=== PATIENT | female | born 1965 | race Caucasian/White ===

== ENCOUNTER 2017-02-02 09:36 | Emergency (ER) | payer OTHER ==
[2017-02-02 11:48] VITALS: BP 147/83
--- NOTE | 2017-02-02 12:02 | UC ---
Respiratory Complaint HPI - HPI Summary HPI Summary: Patient arrives to with 4 day history of cough, congestion, post nasal drip, SOB, SALGADO, body aches, diaphoresis and chills. Symptoms are becoming worse. Cough is bothering her the most. She notes to SOB, but more so when she coughs. Denies chest pain, but endorses pressure. She denies getting the flu vaccine this year, stating she does not believe in it. She also has never had the flu. Denies sore throat, sick contacts or travel. Patient is an ex-smoker and quit 3 months ago. She has high BP and takes medications. NKA. Denies fever. - History of Current Complaint Chief Complaint: UCRespiratory Stated Complaint: URI Time Seen by Provider: 02/02/17 10:57 Hx Obtained From: Patient ?: No Onset/Duration: Sudden Onset Timing: Constant Severity Initially: Moderate Severity Currently: Moderate Pain Intensity: 3 Pain Scale Used: 0-10 Numeric Character: Cough: Productive Aggravating Factors: Deep Breaths, Recumbent Position Alleviating Factors: Upright Position Associated Signs And Symptoms: Positive: Dyspnea, Pleuritic Chest Pain, URI, Nasal Congestion, Sinus Discomfort - Risk Factors Pulmonary Embolism Risk Factors: Smoking Cardiac Risk Factors: Hypertension, Smoking Pseudomonas Risk Factors: Negative Tuberculosis Risk Factors: Negative - Allergies/Home Medications Allergies/Adverse Reactions: Allergies Allergy/AdvReac Type Severity Reaction Status Date / Time No Known Allergies Allergy Verified 02/02/17 10:36 PMH/Surg Hx/FS Hx/Imm Hx Previously Healthy: Yes Endocrine History Of: Denies: Diabetes, Thyroid Disease Cardiovascular History Of: Reports: Hypertension Denies: Cardiac Disorders Respiratory History Of: Reports: Asthma Denies: COPD GI/ History Of: Reports: Kidney Stones Denies: Ulcer - Surgical History Surgical History: Yes Surgery Procedure, Year, and Place: csection, - Family History Known Family History: Positive: Unknown - adopted. unknown FHx. - Social History Occupation: Employed Full-time Alcohol Use: None Alcohol Amount: 5-6 drinks twice a week Substance Use Type: None Smoking Status (MU): Former Smoker Type: Cigarettes Amount Used/How Often: 1/2 pack a day Length of Time of Smoking/Using Tobacco: 30+ yrs Have You Smoked in the Last Year: Yes Household Exposure Type: Cigarettes - Immunization History Most Recent Influenza Vaccination: never Most Recent Tetanus Shot: unk Most Recent Pneumonia Vaccination: never Review of Systems Constitutional: Fatigue Skin: Negative ENT: Nasal Discharge Respiratory: Shortness Of Breath, Cough Neurovascular: Negative Musculoskeletal: Myalgia Neurological: Headache, Weakness Psychological: Negative All Other Systems Reviewed And Are Negative: Yes Physical Exam Triage Information Reviewed: Yes Appearance: Well-Nourished, Ill-Appearing, Obese Vital Signs: Initial Vital Signs Temp 98.0 F 02/02/17 10:30 Pulse 89 02/02/17 10:30 Resp 20 02/02/17 10:30 BP 168/73 02/02/17 10:30 Pulse Ox 96 02/02/17 10:30 Vital Signs Reviewed: Yes Eye Exam: Normal Eyes: Positive: Conjunctiva Clear ENT: Positive: Nasal congestion Dental Exam: Normal Neck: Positive: Supple, No Lymphadenopathy Respiratory Exam: Normal Respiratory: Positive: Chest non-tender, Lungs clear Cardiovascular Exam: Normal Cardiovascular: Positive: RRR Musculoskeletal Exam: Normal Musculoskeletal: Positive: Strength Intact Neurological Exam: Normal Neurological: Positive: Alert Psychological: Positive: Normal Response To Family Skin Exam: Normal UC Diagnostic Evaluation - Laboratory O2 Sat by Pulse Oximetry: 96 Respiratory Course/Dx - Course Course Of Treatment: Patient sent to xray. Xray shows PNA. Patient recently quit smoking and will prescribe Levaquin d/t given for foul smelling mucous and smoking history to cover H. influenza and strep pneumo. Patient has multiple risk factors. Given tylenol with codeine for cough, encouraged continuation of mucinex. Note given for work. - Differential Dx/Diagnosis Differential Diagnosis/HQI/PQRI: Bronchitis, Exacerbation Of COPD, Sinusitis, Other - PNA Provider Diagnoses: bacterial pneumonia Discharge - Discharge Plan Condition: Stable Disposition: HOME Prescriptions: Acetaminophen W/ Codeine [Acetaminophen/Codeine Rafaela] 1 tab PO Q6H PRN #20 tab MDD 4 PRN Reason: Cough Levofloxacin TAB* [Levaquin TAB*] 750 mg PO DAILY #5 tab Patient Education Materials: Bacterial Pneumonia (ED) Forms: *Work Release Referrals: Edy Calvin MD [Primary Care Provider] - Additional Instructions: Continue with guaifenesin up to 3 times daily - follow instructions on packaging at home. Tylenol with codeine may be taken up to 4 times daily, but do not drive with this medication. Levaquin has been prescribed to you. Take this once per day for 5 days. Do not extra Tylenol while you are taking the cough medication. If you develop a fever, you may take Ibuprofen 600mg up to three times daily. Rest Drink plenty of fluids Humidifier in the home will help with symptoms.
--- NOTE | 2017-02-02 12:33 | RAD ---
INDICATION: Wheezing, rhonchi and cough. COMPARISON: There are no prior studies available for comparison. TECHNIQUE: Dual-energy PA and lateral views of the chest were obtained. FINDINGS: The heart is within normal limits in size. Mediastinal and hilar contours appear within normal limits. There is a faint peripheral infiltrate present in the right mid and lower lung field only seen on the subtraction images. The lungs are otherwise clear. No pleural effusion is seen. IMPRESSION: RIGHT-SIDED INFILTRATE SUSPICIOUS FOR PNEUMONIA.
== END 2017-02-02 13:15 | disposition home or self-care (01) ==
LOC: UCEAST 09:36
DX: J18.9 Pneumonia, unspecified organism (principal); I10 Essential (primary) hypertension; Z87.891 Personal history of nicotine dependence; E66.9 Obesity, unspecified
CPT/HCPCS: 71020; 99212; G0463

== ENCOUNTER 2017-02-26 16:22 | Observation (INO) | payer OTHER ==
[2017-02-26] MEDS ORDERED: Ondansetron INJ* 2 MG/ML VIAL IV ONE (17:26)
[2017-02-26] MEDS: NS 0.9% 1000 ML* 2,000 ML IV ONE ×2 (18:07→18:15)
--- NOTE | 2017-02-26 18:08 | RAD ---
INDICATION: Shortness of breath, recent pneumonia. Diarrhea. COMPARISON: February 08, 2017 TECHNIQUE: Dual energy PA and routine lateral views of the chest were obtained. REPORT: Large body habitus results in superimposed opacity at the lower lung zones. No pulmonary infiltrate, focal pulmonary lesion, pleural effusion, pneumothorax. The heart, pulmonary vasculature, and mediastinal contours are unremarkable. IMPRESSION: No evidence for acute intrathoracic disease.
[2017-02-26 18:26] LABS: Hematocrit 40 % (35-47); Hemoglobin 12.8 g/dl (12.0-16.0); Mean Corpuscular HGB Conc 32 g/dl (31-36); Mean Corpuscular Hemoglobin 29 pg (27-31); Mean Corpuscular Volume 91 fL (80-97); Mean Platelet Volume 9 um3 (7.4-10.4); Red Cell Distribution Width 15 % (10.5-15); White Blood Count 13.2 10^3/ul (3.5-10.8)
[2017-02-26 18:40] LABS: Albumin 4.4 g/dL (3.2-5.2); BUN/Creatinine Ratio 17.3 (8-20); C Reactive Protein 28.92 mg/L (< 5.00); Calcium 10.1 mg/dL (8.6-10.3); EGFR African American 22.5 (>60); EGFR Non-African American 17.5 (>60); Potassium 4.2 mmol/L (3.5-5.0); Total Bilirubin 0.3 mg/dL (0.2-1.0); Total Protein 7.4 g/dL (6.4-8.9)
[2017-02-26 20:38] LABS: Urine Bilirubin Negative (Negative); Urine Glucose Negative (Negative); Urine Nitrite Negative (Negative)
[2017-02-26] MEDS ORDERED: NS 0.9% 1000 ML* 1,000 ML IV ONE (21:13)
--- NOTE | 2017-02-26 23:13 | ED ---
Rafa Fam Erika, scribed for Nirav Chase MD on 02/26/17 at 1741 . GI/ HPI - HPI Summary HPI Summary: Patient is a 51-year-old female presenting to the ED with a CC of diarrhea. Patient reports that 3 days ago, she developed nausea, decreased appetite, and diarrhea. Diarrhea is watery with no blood. She denies vomiting. 2 days ago, patient developed generalized arthralgias. Patient also reports bilateral lower back pain and diffuse abdominal pain rated a 4/10. Patient reports she drank pedialyte today, but did not urinate since this morning which is unusual for her. Patient now also notes new abdominal bloating. She admits to mild burning with urination and states a Hx kidney stones. Patient states that she was diagnosed with pneumonia, and finished her second round of Abx 2 weeks ago. She was first on levaquin, and then on bactrim and azithromycin. Symptoms have improved, but she still notes SOB and a productive cough with dark yellow phlegm. - History of Current Complaint Chief Complaint: EDGeneral Time Seen by Provider: 02/26/17 17:12 Hx Obtained From: Patient Onset/Duration: Started Days Ago, Atraumatic, Still Present Timing: Constant Severity: Moderate Pain Intensity: 6 Location of Pain: Diffuse Associated Signs and Symptoms: Positive: Back Pain, Nausea, Dysuria, Change in Appetite. Negative: Vomiting Aggravating Factor(s): Nothing Alleviating Factor(s): Nothing - Allergy/Home Medications Allergies/Adverse Reactions: Allergies Allergy/AdvReac Type Severity Reaction Status Date / Time No Known Allergies Allergy Verified 02/02/17 10:36 PMH/Surg Hx/FS Hx/Imm Hx Endocrine/Hematology History: Denies: Hx Diabetes, Hx Thyroid Disease Cardiovascular History: Reports: Hx Hypertension Respiratory History: Reports: Hx Asthma Denies: Hx Chronic Obstructive Pulmonary Disease (COPD) GI History: Denies: Hx Ulcer History: Reports: Hx Kidney Stones - Cancer History Hx Chemotherapy: No Hx Radiation Therapy: No - Surgical History Surgery Procedure, Year, and Place: csection, Infectious Disease History: Denies: Hx Hepatitis, Hx Human Immunodeficiency Virus (HIV), Hx of Known/ Suspected MRSA, Hx Shingles, Hx Tuberculosis, History Other Infectious Disease, Traveled Outside the [place] in Last 30 Days - Family History Known Family History: Positive: Unknown - adopted - Social History Occupation: Employed Full-time Hx Substance Use: No Substance Use Type: Reports: None Hx Tobacco Use: Yes Smoking Status (MU): Former Smoker Type: Cigarettes Amount Used/How Often: 1/2 pack a day Length of Time of Smoking/Using Tobacco: 30+ yrs Have You Smoked in the Last Year: Yes Review of Systems Positive: Shortness Of Breath, Cough - productive Positive: Abdominal Pain - with bloating, Diarrhea, Nausea. Negative: Vomiting Positive: burning - mild, frequency - decreased Positive: Arthralgia, Myalgia - lower back pain All Other Systems Reviewed And Are Negative: Yes Physical Exam Triage Information Reviewed: Yes Vital Signs On Initial Exam: Initial Vitals Temp Pulse Resp BP Pulse Ox 97.1 F 108 20 112/63 99 02/26/17 16:31 02/26/17 16:31 02/26/17 16:31 02/26/17 16:31 02/26/17 16:31 Vital Signs Reviewed: Yes Appearance: Positive: No Pain Distress, Ill-Appearing - Mildly Skin: Positive: Warm, Skin Color Reflects Adequate Perfusion, Dry Head/Face: Positive: Normal Head/Face Inspection Eyes: Positive: EOMI, PARVEEN ENT: Positive: Normal ENT inspection Neck: Positive: Supple, Nontender Respiratory/Lung Sounds: Positive: Clear to Auscultation, Breath Sounds Present Cardiovascular: Positive: Tachycardia - at 108 bpm on triage Abdomen Description: Positive: Nontender, Soft Bowel Sounds: Positive: Present Musculoskeletal: Positive: Normal, Strength/ROM Intact Neurological: Positive: Normal, Sensory/Motor Intact, Alert, Oriented to Person Place, Time Psychiatric: Positive: Affect/Mood Appropriate Diagnostics - Vital Signs Vital Signs Temp Pulse Resp BP Pulse Ox 02/26/17 16:31 97.1 F 108 20 112/63 99 - Laboratory Lab Results: Lab Results 02/26/17 02/26/17 02/26/17 Range/Units 18:05 18:05 18:05 WBC 13.2 H (3.5-10.8) 10^3/ul RBC 4.40 (4.0-5.4) 10^6/ul Hgb 12.8 (12.0-16.0) g/dl Hct 40 (35-47) % MCV 91 (80-97) fL MCH 29 (27-31) pg MCHC 32 (31-36) g/dl RDW 15 (10.5-15) % Plt Count 280 (150-450) 10^3/ul MPV 9 (7.4-10.4) um3 Neut % (Auto) 65.5 (38-83) % Lymph % (Auto) 26.4 (25-47) % Louisa % (Auto) 6.7 (1-9) % Eos % (Auto) 0.8 (0-6) % Baso % (Auto) 0.6 (0-2) % Absolute Neuts (auto) 8.7 H (1.5-7.7) 10^3/ul Absolute Lymphs (auto) 3.5 (1.0-4.8) 10^3/ul Absolute Monos (auto) 0.9 H (0-0.8) 10^3/ul Absolute Eos (auto) 0.1 (0-0.6) 10^3/ul Absolute Basos (auto) 0.1 (0-0.2) 10^3/ul Absolute Nucleated RBC 0 10^3/ul Nucleated RBC % 0 Sodium 135 (133-145) mmol/L Potassium 4.2 (3.5-5.0) mmol/L Chloride 103 (101-111) mmol/L Carbon Dioxide 20 L (22-32) mmol/L Anion Gap 12 H (2-11) mmol/L BUN 49 H (6-24) mg/dL Creatinine 2.83 H (0.51-0.95) mg/dL Est GFR ( Amer) 22.5 (>60) Est GFR (Non-Af Amer) 17.5 (>60) BUN/Creatinine Ratio 17.3 (8-20) Glucose 108 H (70-100) mg/dL Lactic Acid 1.2 (0.5-2.0) mmol/L Calcium 10.1 (8.6-10.3) mg/dL Total Bilirubin 0.30 (0.2-1.0) mg/dL AST 24 (13-39) U/L ALT 30 (7-52) U/L Alkaline Phosphatase 66 (34-104) U/L C-Reactive Protein 28.92 H (< 5.00) mg/L Total Protein 7.4 (6.4-8.9) g/dL Albumin 4.4 (3.2-5.2) g/dL Globulin 3.0 (2-4) g/dL Albumin/Globulin Ratio 1.5 (1-3) Lipase 22 (11.0-82.0) U/L Urine Color Urine Appearance Urine pH (5-9) Ur Specific [place] (1.010-1.030) Urine Protein (Negative) Urine Ketones (Negative) Urine Blood (Negative) Urine Nitrate (Negative) Urine Bilirubin (Negative) Urine Urobilinogen (Negative) Ur Leukocyte Esterase (Negative) Urine Glucose (Negative) 02/26/17 Range/Units 18:25 WBC (3.5-10.8) 10^3/ul RBC (4.0-5.4) 10^6/ul Hgb (12.0-16.0) g/dl Hct (35-47) % MCV (80-97) fL MCH (27-31) pg MCHC (31-36) g/dl RDW (10.5-15) % Plt Count (150-450) 10^3/ul MPV (7.4-10.4) um3 Neut % (Auto) (38-83) % Lymph % (Auto) (25-47) % Louis[place] % (Auto) (1-9) % Eos % (Auto) (0-6) % Baso % (Auto) (0-2) % Absolute Neuts (auto) (1.5-7.7) 10^3/ul Absolute Lymphs (auto) (1.0-4.8) 10^3/ul Absolute Monos (auto) (0-0.8) 10^3/ul Absolute Eos (auto) (0-0.6) 10^3/ul Absolute Basos (auto) (0-0.2) 10^3/ul Absolute Nucleated RBC 10^3/ul Nucleated RBC % Sodium (133-145) mmol/L Potassium (3.5-5.0) mmol/L Chloride (101-111) mmol/L Carbon Dioxide (22-32) mmol/L Anion Gap (2-11) mmol/L BUN (6-24) mg/dL Creatinine (0.51-0.95) mg/dL Est GFR ( Amer) (>60) Est GFR (Non-Af Amer) (>60) BUN/Creatinine Ratio (8-20) Glucose (70-100) mg/dL Lactic Acid (0.5-2.0) mmol/L Calcium (8.6-10.3) mg/dL Total Bilirubin (0.2-1.0) mg/dL AST (13-39) U/L ALT (7-52) U/L Alkaline Phosphatase (34-104) U/L C-Reactive Protein (< 5.00) mg/L Total Protein (6.4-8.9) g/dL Albumin (3.2-5.2) g/dL Globulin (2-4) g/dL Albumin/Globulin Ratio (1-3) Lipase (11.0-82.0) U/L Urine Color Yellow Urine Appearance Clear Urine pH 5.0 (5-9) Ur Specific [place] 1.016 (1.010-1.030) Urine Protein Negative (Negative) Urine Ketones Negative (Negative) Urine Blood Negative (Negative) Urine Nitrate Negative (Negative) Urine Bilirubin Negative (Negative) Urine Urobilinogen Negative (Negative) Ur Leukocyte Esterase Negative (Negative) Urine Glucose Negative (Negative) Result Diagrams: 02/26/17 18:05 02/26/17 18:05 Lab Statement: Any lab studies that have been ordered have been reviewed, and results considered in the medical decision making process. - Radiology CXR Radiology Interpretation Completed By: Radiologist - IMPRESSION: No evidence for acute intrathoracic disease. Re-Evaluation - Re-Evaluation First Eval Re-Evaluation Time: 20:45 Change: Improved Comment: Discussed results with patient. Was able to eat - will see if she can tolerate the PO Second Eval Re-Evaluation Time: 21:16 Comment: Discussed plan for possible admission vs. discharge - pt would prefer discharge, so IV fluids and PO test started. Will recheck creatinine. Fourth Eval Re-Evaluation Time: 23:01 Comment: Patient was able to tolerate PO intake and is still feeling better. Creatinine re-draw pending GIGU Course/Dx - Course Course Of Treatment: NO CRITICAL CARE TIME Assessment/Plan: DISCUSSED ADMISSION VERSES DISCHARGE TO HOME. PATIENT WAS GIVEN 3 LITERS OF NS IN ED. TOLERATING PO. IF CREATINE DROPS SUFFICIENTLY AND PATIENT IS TOLERATING PO, SHE WILL F/U WITH HER PMD. STABLE IN ED. OTHERWISE, SHE WILL BE ADMITTED. - Diagnoses Provider Diagnoses: Dehydration, Vomiting and diarrhea, Acute renal insufficiency - Physician Notifications Discussed Care Of Patient With: Dr. Evangelista (hospitalist) at 21:12 - discussed patient's creatinine and possible admission. If patient is concerned, Dr. Evangelista will admit. If pt prefers to go home, patient will be given fluids, creatinine will be rechecked, and pt will be PO tested, and then disposition will be made. Discharge - Discharge Plan Condition: Stable Disposition: HOME Prescriptions: Ondansetron ODT TAB* [Zofran 4 MG Odt TAB*] 4 mg PO Q6H PRN #10 tab.odt PRN Reason: Nausea Patient Education Materials: Dehydration (ED), Acute Nausea and Vomiting (ED), Acute Diarrhea (ED), Impaired Kidney Function (ED) Forms: *Work Release Referrals: Edy Calvin MD [Primary Care Provider] - Additional Instructions: FOLLOW UP WITH YOUR DOCTOR. CALL 02/28/17 TO HAVE A RECHECK OF YOUR KIDNEY FUNCTION (CREATININE) WITH YOUR DOCTOR ON 02/28/17 OR 03/01/17. RETURN TO THE EMERGENCY DEPARTMENT FOR ANY WORSENING OF YOUR CONDITION; VOMITING , FEVER, YOU FEEL ILL, PAIN OR QUESTIONS OR CONCERNS. The documentation as recorded by the Rafa victor Erika accurately reflects the service I personally performed and the decisions made by me, Nirav Chase MD.
[2017-02-26 23:27] LABS: BUN/Creatinine Ratio 19.8 (8-20); Calcium 8.6 mg/dL (8.6-10.3); EGFR African American 29.7 (>60); EGFR Non-African American 23.1 (>60); Potassium 3.9 mmol/L (3.5-5.0)
[2017-02-26] MEDS ORDERED: NS 0.9% 1000 ML* 1,000 ML IV SCH (23:45)
--- NOTE | 2017-02-26 23:50 | ED ---
Progress - Progress Note Progress Note: pt signed out to me by Dr. Mancilla collateral specialist after hydration is 2.22, call to Tonja who will admit her. Pt admitted with dehydration in stable condition Re-Evaluation - Re-Evaluation First Eval Re-Evaluation Time: 20:45 Change: Improved Comment: Discussed results with patient. Was able to eat - will see if she can tolerate the PO Second Eval Re-Evaluation Time: 21:16 Comment: Discussed plan for possible admission vs. discharge - pt would prefer discharge, so IV fluids and PO test started. Will recheck creatinine. Fourth Eval Re-Evaluation Time: 23:01 Comment: Patient was able to tolerate PO intake and is still feeling better. Creatinine re-draw pending Course/Dx - Course Course Of Treatment: NO CRITICAL CARE TIME - Diagnoses Provider Diagnoses: Dehydration, Vomiting and diarrhea, Acute renal insufficiency - Provider Notifications Discussed Care Of Patient With: Dr. Evangelista (hospitalist) at 21:12 - discussed patient's creatinine and possible admission. If patient is concerned, Dr. Evangelista will admit. If pt prefers to go home, patient will be given fluids, creatinine will be rechecked, and pt will be PO tested, and then disposition will be made.
[2017-02-26] MEDS ORDERED: Ondansetron INJ* 2 MG/ML VIAL IV PRN (23:57)
[2017-02-26] MEDS ORDERED: Acetaminophen TAB* 325 MG PO PRN (23:57)
[2017-02-26] MEDS ORDERED: Albuterol 2.5 MG/3 ML NEB.SOL* (0.083%) INH PRN (23:57)
[2017-02-26] MEDS ORDERED: CMCS: Melatonin (NF) 3 MG TAB PO PRN (23:57)
--- NOTE | 2017-02-27 00:10 | HP ---
H&P (Free Text) History and Physical: PCP: ALEJANDRO Calvin MD Date/Time of Evaluation: 02/26/2017 2355 CC: abdominal pain, diarrhea HPI: Mrs Hernández is a 51YO morbidly obese female HX HTN & asthma who reports onset of diffuse abdominal cramping, watery brown diarrhea, & nausea without emesis starting 2 days ago and progressing to include fatigue and generalized malaise for which she presents. She denies F/C and sweats beyond her baseline menopausal symptoms. She denies black or bloody aspect to the diarrhea. She reports about 6 stools yesterday and 3 today. She has had poor PO intake due to the nausea which is made worse by eating/drinking. She had a similar experience in 05/2016 requiring observation for IVFs. Vitals are stable. Labs show a significant PEDRO with creatinine 2.8 (baseline <1) . She received 3L IVFs in ED and recheck creatinine was improved, but only to 2.2. As such, it is most prudent to observe for further IVFs and trend her renal function. PMedHx HTN asthma morbid obesity Ambulatory Orders Aspirin 325 mg PO DAILY 06/12/16 Enalapril TAB* [Vasotec TAB*] 5 mg PO BID 06/12/16 Glucosamine Hydrochloride [Glucosamine] 500 mg PO DAILY 06/12/16 Multiple Vitamins W/ Minerals [Hair Skin and Nails Formu] 1 tab PO DAILY WITH MEAL 06/12/16 Acetaminophen W/ Codeine [Acetaminophen/Codeine Rafaela 300-30 mg] 1 tab PO Q4H PRN #24 tab MDD 6 02/02/17 Levofloxacin TAB* [Levaquin TAB*] 750 mg PO DAILY #5 tab 02/02/17 Ondansetron ODT TAB* [Zofran 4 MG Odt TAB*] 4 mg PO Q6H PRN #10 tab.odt Allergies No Known Allergies Allergy (Verified 02/02/17 10:36) PSurgHx x2 SocHx: former smoker w/ ~20PYHX, social alcohol, no recreational drugs; lives alone, from her , 2 adult children neither local; full code status FamHx: adopted & unknown ROS: as above, otherwise reviewed and all were negative Constitutional: NAD, normally developed, morbidly obese white female vitals: Vital Signs Temp 36.2 C 02/26/17 18:09 Pulse 100 02/26/17 18:30 Resp 18 02/26/17 18:30 BP 126/74 02/26/17 18:30 Pulse Ox 99 02/26/17 18:30 Intake & Output 02/26/17 02/26/17 02/27/17 11:59 23:59 11:59 Intake Total 3000 Balance 3000 Weight 108.862 kg Intake: IV Fluids 3000 Other: Date of Last Bowel 02/26/17 Movement HEENM: atraumatic; sclera/conjunctiva: non-icteric/clear; hearing: clinically intact; oropharynx: clear, mucosa moist Neck: soft tissue: non-tender; thyroid: normal Pulmonary: clear to auscultation bilaterally, good aeration, no accessory muscle use CV: RR/RR, normal S1S2, no carotid bruit, no jugular venous distention, 2+ B DP/ PT, no edema Abdominal: soft, non-distended, minimally tender R lateral area, no rebound/ guarding/rigidity, normoactive bowel sounds, no hepatosplenomegaly or masses, no costovertebral angle tenderness Musculoskeletal: general: grossly intact; gait: stable Integumental: normal appearance and texture Psychiatric orientation: AA&O to PPS affect: calm mood: cooperative eye contact: good content: reliable responses: timely insight: good Testing: Lab Results 02/26/17 02/26/17 02/26/17 Range/Units 18:05 18:05 18:05 WBC 13.2 H (3.5-10.8) 10^3/ul RBC 4.40 (4.0-5.4) 10^6/ul Hgb 12.8 (12.0-16.0) g/dl Hct 40 (35-47) % MCV 91 (80-97) fL MCH 29 (27-31) pg MCHC 32 (31-36) g/dl RDW 15 (10.5-15) % Plt Count 280 (150-450) 10^3/ul MPV 9 (7.4-10.4) um3 Neut % (Auto) 65.5 (38-83) % Lymph % (Auto) 26.4 (25-47) % [place] % (Auto) 6.7 (1-9) % Eos % (Auto) 0.8 (0-6) % Baso % (Auto) 0.6 (0-2) % Absolute Neuts (auto) 8.7 H (1.5-7.7) 10^3/ul Absolute Lymphs (auto) 3.5 (1.0-4.8) 10^3/ul Absolute Monos (auto) 0.9 H (0-0.8) 10^3/ul Absolute Eos (auto) 0.1 (0-0.6) 10^3/ul Absolute Basos (auto) 0.1 (0-0.2) 10^3/ul Absolute Nucleated RBC 0 10^3/ul Nucleated RBC % 0 Sodium 135 (133-145) mmol/L Potassium 4.2 (3.5-5.0) mmol/L Chloride 103 (101-111) mmol/L Carbon Dioxide 20 L (22-32) mmol/L Anion Gap 12 H (2-11) mmol/L BUN 49 H (6-24) mg/dL Creatinine 2.83 H (0.51-0.95) mg/dL Est GFR ( Amer) 22.5 (>60) Est GFR (Non-Af Amer) 17.5 (>60) BUN/Creatinine Ratio 17.3 (8-20) Glucose 108 H (70-100) mg/dL Lactic Acid 1.2 (0.5-2.0) mmol/L Calcium 10.1 (8.6-10.3) mg/dL Total Bilirubin 0.30 (0.2-1.0) mg/dL AST 24 (13-39) U/L ALT 30 (7-52) U/L Alkaline Phosphatase 66 (34-104) U/L C-Reactive Protein 28.92 H (< 5.00) mg/L Total Protein 7.4 (6.4-8.9) g/dL Albumin 4.4 (3.2-5.2) g/dL Globulin 3.0 (2-4) g/dL Albumin/Globulin Ratio 1.5 (1-3) Lipase 22 (11.0-82.0) U/L Urine Color Urine Appearance Urine pH (5-9) Ur Specific [place] (1.010-1.030) Urine Protein (Negative) Urine Ketones (Negative) Urine Blood (Negative) Urine Nitrate (Negative) Urine Bilirubin (Negative) Urine Urobilinogen (Negative) Ur Leukocyte Esterase (Negative) Urine Glucose (Negative) 02/26/17 02/26/17 Range/Units 18:25 22:55 WBC (3.5-10.8) 10^3/ul RBC (4.0-5.4) 10^6/ul Hgb (12.0-16.0) g/dl Hct (35-47) % MCV (80-97) fL MCH (27-31) pg MCHC (31-36) g/dl RDW (10.5-15) % Plt Count (150-450) 10^3/ul MPV (7.4-10.4) um3 Neut % (Auto) (38-83) % Lymph % (Auto) (25-47) % [place] % (Auto) (1-9) % Eos % (Auto) (0-6) % Baso % (Auto) (0-2) % Absolute Neuts (auto) (1.5-7.7) 10^3/ul Absolute Lymphs (auto) (1.0-4.8) 10^3/ul Absolute Monos (auto) (0-0.8) 10^3/ul Absolute Eos (auto) (0-0.6) 10^3/ul Absolute Basos (auto) (0-0.2) 10^3/ul Absolute Nucleated RBC 10^3/ul Nucleated RBC % Sodium 136 (133-145) mmol/L Potassium 3.9 (3.5-5.0) mmol/L Chloride 108 (101-111) mmol/L Carbon Dioxide 22 (22-32) mmol/L Anion Gap 6 (2-11) mmol/L BUN 44 H (6-24) mg/dL Creatinine 2.22 H (0.51-0.95) mg/dL Est GFR ( Amer) 29.7 (>60) Est GFR (Non-Af Amer) 23.1 (>60) BUN/Creatinine Ratio 19.8 (8-20) Glucose 131 H (70-100) mg/dL Lactic Acid (0.5-2.0) mmol/L Calcium 8.6 (8.6-10.3) mg/dL Total Bilirubin (0.2-1.0) mg/dL AST (13-39) U/L ALT (7-52) U/L Alkaline Phosphatase (34-104) U/L C-Reactive Protein (< 5.00) mg/L Total Protein (6.4-8.9) g/dL Albumin (3.2-5.2) g/dL Globulin (2-4) g/dL Albumin/Globulin Ratio (1-3) Lipase (11.0-82.0) U/L Urine Color Yellow Urine Appearance Clear Urine pH 5.0 (5-9) Ur Specific [place] 1.016 (1.010-1.030) Urine Protein Negative (Negative) Urine Ketones Negative (Negative) Urine Blood Negative (Negative) Urine Nitrate Negative (Negative) Urine Bilirubin Negative (Negative) Urine Urobilinogen Negative (Negative) Ur Leukocyte Esterase Negative (Negative) Urine Glucose Negative (Negative) CXR, personally reviewed: IMPRESSION: No evidence for acute intrathoracic disease. Impression: 51F presenting with gastroenteritis w/ 2nd dehydration & PEDRO DIAGNOSIS & PLAN Primary gastroenteritis w/ dehydration : IVFs : anti-emetics : no other specific treatment PEDRO : IVFs, trend renal function Secondary HTN : hold anti-hypertensives for now asthma : PRN albuterol nebs OA : pain control Admission Rational: observation for PEDRO DVTp: SCDs Code Status: full
[2017-02-27] MEDS: NS 0.9% 1000 ML* 1,000 ML IV SCH ×2 (01:00→05:51)
[2017-02-27] MEDS: oxyCODONE TAB* 5 MG TAB PO PRN ×2 (01:19→05:49)
[2017-02-27] MEDS ORDERED: Omeprazole CAP* 20 MG PO SCH (06:00)
[2017-02-27 08:44] LABS: Hematocrit 33 % (35-47); Hemoglobin 10.6 g/dl (12.0-16.0); Mean Corpuscular HGB Conc 32 g/dl (31-36); Mean Corpuscular Hemoglobin 29 pg (27-31); Mean Corpuscular Volume 91 fL (80-97); Mean Platelet Volume 9 um3 (7.4-10.4); Red Blood Count 3.63 10^6/ul (4.0-5.4); Red Cell Distribution Width 15 % (10.5-15)
[2017-02-27 08:55] LABS: BUN/Creatinine Ratio 26.2 (8-20); Calcium 7.9 mg/dL (8.6-10.3); EGFR African American 57.1 (>60); EGFR Non-African American 44.4 (>60); Potassium 4.8 mmol/L (3.5-5.0)
--- NOTE | 2017-02-27 10:20 | RAD ---
Indication: Acute renal insufficiency. Comparison: June 12, 2016 CT. Technique: Renal ultrasound. Report: 11.8 x 5.5 x 5.5 cm RIGHT kidney. 11.0 x 5.2 x 6.1 cm LEFT kidney. Normal bilateral renal cortical echogenicity. Punctate echogenic foci at both kidneys with equivocal shadowing suspicious for small stones. No suspicious focal renal lesions or hydronephrosis. IMPRESSION: Normal size kidneys with normal cortical echogenicity. Probable small nonobstructing bilateral renal stones. Negative for hydronephrosis. June 12, 2016 CT demonstrated a few punctate RIGHT renal stones.
[2017-02-27 12:03] VITALS: BP 125/50
--- NOTE | 2017-02-27 19:25 | DS ---
DISCHARGE SUMMARY: DATE OF ADMISSION: 02/26/17 DATE OF DISCHARGE: 02/27/17 PRIMARY CARE PROVIDER: Dr. Calvin. DISCHARGE DIAGNOSES: 1. Abdominal pain and diarrhea, most likely due to costochondritis. 2. Acute renal failure due to dehydration secondary to above. SECONDARY DIAGNOSES: 1. History of hypertension. 2. History of asthma. 3. Obesity. MEDICATIONS AT DISCHARGE: Include: 1. Aspirin 325 mg daily. 2. Glucosamine with chondroitin 500 mg daily. 3. Multivitamin 1 tablet daily. LABORATORY DATA AND STUDIES PERFORMED DURING THE HOSPITAL STAY: Included: On 02/27/17, white blood cell count of 7.0, hemoglobin of 10.6, hematocrit of 33, and platelets of 187. Sodium 138, potassium 4.8, chloride 111, carbon dioxide 22, BUN 33, creatinine 1.26. Creatinine at admission was 2.8. Urinalysis was grossly unremarkable at admission. Renal ultrasound obtained on 02/27/17, impression: "Normal size kidneys with normal cortical echogenicity. Probable small, non-obstructive bilateral renal stones. Negative hydronephrosis." HOSPITALIZATION COURSE: Taina Hernández is 51-year-old female, who presented to the hospital on 02/26/17 with complaints of abdominal pain and diarrhea. The patient stated that she had abdominal pain/cramping and diarrhea for 3 days. She was noted to have acute renal failure with creatinine of 2.8, a baseline creatinine of 0.8. The patient appeared dehydrated. She was placed on overnight observation with intravenous fluids and hydration. In the morning of 02/27/17, the patient was evaluated. She still continued to have diarrhea, but abdominal cramping resolved. She was able to tolerate bland diet. Her leukocytosis resolved spontaneously. At this point, her stool cultures are still pending. Her renal failure is markedly improved. The patient requested to be discharged home. 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 She stated that she feels much better. She was advised to stay due to continuation of diarrhea , but she refused. She was educated that if her diarrhea continues to persists , she needs to be reevaluated in the emergency room for more intravenous hydration. The patient also was encouraged to seek medical attention for a followup within the next 2 to 4 days with her primary care provider. She was recommended to continue to drink plenty of fluids and be on bland diet for the next several days. PHYSICAL EXAMINATION AT THE TIME OF DISCHARGE: Vital Signs: Blood pressure of 125/50, heart rate of 93 and regular, respiratory rate 16, oxygen saturation 98 % on room air, temperature 98.5. General: The patient is a very pleasant 51- year-old female, who is in no acute distress, alert, awake, and oriented x3. HEENT: Head atraumatic, normocephalic. Eyes: Pupils equal and reactive to light and accommodation. Oropharynx clear. Mucosa moist. Neck: Supple. No JVD. No bruit bilaterally. Cardiovascular: Regular rate and rhythm. No murmur. Respiratory: Clear to auscultation bilaterally. Abdomen: Soft and nontender. Bowel sounds present in all 4 quadrants. Extremities: There is no edema. Pulses are +2 bilaterally. There is no clubbing or cyanosis. Please note this is a short summary of the patient's hospital stay. Please refer to further medical records for details. TIME SPENT: Approximately 40 minutes was spent on the patient's discharge. CC: Dr. Calvin* [id number]/[facility] #: [id number] MALAIKA
== END 2017-02-27 13:35 | disposition home or self-care (01) ==
LOC: ED 16:22 → MED 23:56
PROVIDERS: ADMIT Hospitalist; ATTEND Internal Medicine
DX: K52.9 Noninfective gastroenteritis and colitis, unspecified (principal); E86.0 Dehydration; N17.9 Acute kidney failure, unspecified; I10 Essential (primary) hypertension; E66.01 Morbid (severe) obesity due to excess calories; J45.909 Unspecified asthma, uncomplicated; Z79.899 Other long term (current) drug therapy; Z87.891 Personal history of nicotine dependence
CPT/HCPCS: 36415; 71020; 76775; 80048; 80053; 81003; 82270; 83605; 83630; 83690; 85025; 86140; 87045; 87046; 87328; 87329; 87899; 96361; 96374; 99283; A9270-GY; J2405

== ENCOUNTER 2017-07-16 12:52 | Emergency (ER) | payer OTHER ==
--- NOTE | 2017-07-16 14:06 | UC ---
Respiratory Complaint HPI - History of Current Complaint Chief Complaint: UCAsthma Stated Complaint: ASTHMA Time Seen by Provider: 07/16/17 13:59 Hx Obtained From: Patient ?: No Onset/Duration: Gradual Onset - has been sick with URI over past week, was rx;d prednisone and z-ezekiel by PCP, pt feels no better. states at times she coughs so hard she sees blood tinged sputum last used albuterol inhaler 3 days ago Severity Currently: Moderate Character: Cough: Productive Aggravating Factors: Exertion, Deep Breaths Alleviating Factors: Nothing Associated Signs And Symptoms: Positive: URI - Risk Factors Pulmonary Embolism Risk Factors: Negative Cardiac Risk Factors: Hypertension - Allergies/Home Medications Allergies/Adverse Reactions: Allergies Allergy/AdvReac Type Severity Reaction Status Date / Time No Known Allergies Allergy Verified 07/16/17 13:03 Home Medications: Home Medications Albuterol HFA INHALER* [Ventolin HFA Inhaler*] 1 puff PO Q4H PRN 07/16/17 [ History Confirmed 07/16/17] Amlodipine Besylate [Norvasc 2.5 mg tab] 2.5 mg PO DAILY 07/16/17 [History Confirmed 07/16/17] Enalapril TAB* [Vasotec TAB*] 5 mg PO DAILY 07/16/17 [History Confirmed 07/16/17 ] Fluticasone Furoate-Vilanterol [Breo Ellipta 200-25 Mcg/INH] 1 inh PO DAILY [History Confirmed 07/16/17] PMH/Surg Hx/FS Hx/Imm Hx Previously Healthy: Yes Cardiovascular History: Hypertension Respiratory History: Asthma - Surgical History Surgical History: Yes Surgery Procedure, Year, and Place: csection, - Family History Known Family History: Positive: Unknown - adopted - Social History Occupation: Employed Full-time - [employer] Lives: With Family Alcohol Use: Occasionally Alcohol Amount: 5-6 drinks twice a week Substance Use Type: None Smoking Status (MU): Former Smoker Type: Cigarettes Amount Used/How Often: 1/2 pack a day Length of Time of Smoking/Using Tobacco: 30+ yrs Have You Smoked in the Last Year: Yes Household Exposure Type: Cigarettes - Immunization History Most Recent Influenza Vaccination: never Most Recent Tetanus Shot: unk Most Recent Pneumonia Vaccination: never Review of Systems Constitutional: Fatigue Skin: Negative Respiratory: Cough Cardiovascular: Negative Gastrointestinal: Diarrhea - had diarrhea for 2-3 days early in week Musculoskeletal: Negative Neurological: Negative Psychological: Negative All Other Systems Reviewed And Are Negative: Yes Physical Exam Triage Information Reviewed: Yes Appearance: Well-Appearing, No Pain Distress, Obese Vital Signs: Initial Vital Signs Temp 98.5 F 07/16/17 12:56 Pulse 103 07/16/17 12:56 Resp 20 07/16/17 12:56 BP 156/72 07/16/17 12:56 Pulse Ox 98 07/16/17 12:56 Vital Signs Reviewed: Yes Eyes: Positive: Conjunctiva Clear ENT Exam: Normal Respiratory: Positive: Wheezing - mild insp. no evidence SOB, no cough on exam Cardiovascular Exam: Normal Cardiovascular: Positive: RRR Abdomen Description: Positive: Nontender, No Organomegaly, Soft Neurological Exam: Normal Neurological: Positive: Alert Psychological Exam: Normal Skin Exam: Normal Skin: Negative: rashes UC Diagnostic Evaluation - Laboratory O2 Sat by Pulse Oximetry: 98 Respiratory Course/Dx - Differential Dx/Diagnosis Differential Diagnosis/HQI/PQRI: Asthma, CHF, Lower Resp Infection Provider Diagnoses: Bronchitis Discharge - Discharge Plan Condition: Stable Disposition: HOME Patient Education Materials: Acute Bronchitis (ED) Referrals: Edy Calvin MD [Primary Care Provider] - 2 Days Additional Instructions: drink plenty of fluids finish your prednisone as prescribed by Dr. Calvin Report to ER if your symptoms worsen
--- NOTE | 2017-07-16 14:35 | RAD ---
Indication: Cough. 2 views of the chest including dual energy PA views demonstrates no mediastinal shift. Heart is of normal size and configuration. Lungs are clear. Compared to previous exam of February 26, 2017 no significant change is noted. IMPRESSION: No active cardiopulmonary disease is noted.
[2017-07-16 15:25] VITALS: BP 150/70
== END 2017-07-16 15:25 | disposition home or self-care (01) ==
LOC: UCEAST 12:52
DX: J40 Bronchitis, not specified as acute or chronic (principal); I10 Essential (primary) hypertension; E66.9 Obesity, unspecified; Z87.891 Personal history of nicotine dependence
CPT/HCPCS: 71020; 99212; G0463

== ENCOUNTER → 2017-07-29 13:53 | Emergency (ER) | payer OTHER ==
[~2017-07-29 13:53] MED LIST: NS 0.9% 1000 ML* 1,000 ML IV ONE; Tetan/Diph/Pertus SYR(Tdap)* 0.5 ML SYR(BOOSTRIX) use SYR IM ONE; cefTRIAXone(*) 1 GM in NS 0.9% 50 ML* 50 ML IVPB ONE
[2017-07-29 13:58] VITALS: BP 164/75
[2017-07-29 15:20] LABS: Hemoglobin 12.4 g/dl (12.0-16.0); Red Blood Count 4.21 10^6/ul (4.0-5.4); White Blood Count 9.9 10^3/ul (3.5-10.8)
[2017-07-29 15:21] LABS: Hematocrit 38 % (35-47); Mean Corpuscular HGB Conc 33 g/dl (31-36); Mean Corpuscular Hemoglobin 29 pg (27-31); Mean Corpuscular Volume 90 fL (80-97); Mean Platelet Volume 8 um3 (7.4-10.4); Red Cell Distribution Width 15 % (10.5-15)
[2017-07-29 15:23] LABS: BUN/Creatinine Ratio 20.4 (8-20); Calcium 9.7 mg/dL (8.6-10.3); EGFR African American 64.8 (>60); EGFR Non-African American 50.4 (>60)
[2017-07-29 15:24] LABS: Albumin 4.3 g/dL (3.2-5.2); C Reactive Protein 20.81 mg/L (< 5.00); Globulin 2.6 g/dL (2-4); Total Bilirubin 0.2 mg/dL (0.2-1.0); Total Protein 6.9 g/dL (6.4-8.9)
--- NOTE | 2017-07-29 18:36 | ED ---
Elie Fam Angela, scribed for Martinez Hernandez MD on 07/29/17 at 1418 . Lower Extremity - HPI Summary HPI Summary: This pt is a 51 y/o female presenting to [facility] c/o possible left baca infection s/p running into the safe at work 3 days ago. Pt reports her wound has been streaking down her leg. She states that she might have a piece of metal in it. Pt also states her leg has swollen up more. Pt notes she is dehydrated and would like to be hydrated as well. - History of Current Complaint Chief Complaint: EDExtremityLower Stated Complaint: LEFT LEG INFECTION Time Seen by Provider: 07/29/17 14:12 Hx Obtained From: Patient Mechanism Of Injury: Blunt Trauma - after hitting leg against safe Pain Intensity: 7 Location: Radiates To - lower left leg Associated Signs And Symptoms: Positive: Swelling, Redness. Negative: Bruising , Weakness, Knee Pain Aggravating Factor(s): Nothing Alleviating Factor(s): Nothing - Allergies/Home Medications Allergies/Adverse Reactions: Allergies Allergy/AdvReac Type Severity Reaction Status Date / Time No Known Allergies Allergy Verified 07/16/17 13:03 PMH/Surg Hx/FS Hx/Imm Hx Endocrine/Hematology History: Denies: Hx Diabetes, Hx Thyroid Disease Cardiovascular History: Reports: Hx Hypertension Respiratory History: Reports: Hx Asthma, Other Respiratory Problems/Disorders - PNA Denies: Hx Chronic Obstructive Pulmonary Disease (COPD) GI History: Denies: Hx Ulcer History: Reports: Hx Kidney Stones Musculoskeletal History: Reports: Hx Arthritis Sensory History: Denies: Hx Contacts or Glasses, Hx Hearing Aid Opthamlomology History: Denies: Hx Contacts or Glasses - Cancer History Hx Chemotherapy: No Hx Radiation Therapy: No - Surgical History Surgery Procedure, Year, and Place: csection, - Immunization History Date of Tetanus Vaccine: unknown Date of Influenza Vaccine: no Infectious Disease History: No Infectious Disease History: Denies: Hx Clostridium Difficile, Hx Hepatitis, Hx Human Immunodeficiency Virus (HIV), Hx of Known/Suspected MRSA, Hx Shingles, Hx Tuberculosis, Hx Known/ Suspected VRSA, History Other Infectious Disease, Traveled Outside the [place] in Last 30 Days - Family History Known Family History: Positive: Unknown - pt is adopted - Social History Alcohol Use: Occasionally Alcohol Amount: 5-6 drinks twice a week Hx Substance Use: No Substance Use Type: Reports: None Hx Tobacco Use: Yes Smoking Status (MU): Former Smoker Type: Cigarettes Amount Used/How Often: 1/2 pack a day Length of Time of Smoking/Using Tobacco: 30+ yrs Have You Smoked in the Last Year: Yes Review of Systems Negative: Fever, Chills Cardiovascular: Negative Respiratory: Negative Gastrointestinal: Negative Positive: Edema - left leg, Other - left leg abrasion Positive: Other - left leg abrasion Negative: Weakness, Numbness All Other Systems Reviewed And Are Negative: Yes Physical Exam - Summary Physical Exam Summary: VITAL SIGNS: Reviewed. GENERAL: Patient is a well-developed and obese female who is lying comfortable in the stretcher without distress. Patient is not in any acute respiratory distress. HEAD AND FACE: No signs of trauma. No ecchymosis, hematomas or skull depressions. No sinus tenderness. EYES: PERRLA, EOMI x 2, No injected conjunctiva, no nystagmus. EARS: Hearing grossly intact. Ear canals and tympanic membranes are within normal limits. MOUTH: Oropharynx within normal limits. NECK: Supple, trachea is midline, no adenopathy, no JVD, no carotid bruit, no c- spine tenderness, neck with full ROM. CHEST: Symmetric, no tenderness at palpation LUNGS: Clear to auscultation bilaterally. No wheezing or crackles. CVS: Regular rate and rhythm, S1 and S2 present, no murmurs or gallops appreciated. ABDOMEN: Soft, non-tender. No signs of distention. No rebound no guarding, and no masses palpated. Bowel sounds are normal. EXTREMITIES: FROM in all major joints, no edema, no cyanosis or clubbing. There is left leg abrasion which is healing, but has erythema. NEURO: Alert and oriented x 3. No acute neurological deficits. Speech is normal and follows commands. SKIN: Dry and warm Triage Information Reviewed: Yes Vital Signs On Initial Exam: Initial Vitals Temp Pulse Resp BP Pulse Ox 98.1 F 118 20 164/75 97 07/29/17 13:55 07/29/17 13:55 07/29/17 13:55 07/29/17 13:55 07/29/17 13:55 Vital Signs Reviewed: Yes Diagnostics - Vital Signs Vital Signs Temp Pulse Resp BP Pulse Ox 07/29/17 13:55 98.1 F 118 20 164/75 97 - Laboratory Result Diagrams: 07/29/17 14:30 07/29/17 14:30 Lab Statement: Any lab studies that have been ordered have been reviewed, and results considered in the medical decision making process. Lower Extremity Course/Dx - Course Assessment/Plan: This pt is a 51 y/o female presenting to [facility] c/o possible left baca infection s/p running into the safe at work 3 days ago. Pt reports her wound has been streaking down her leg. She states that she might have a piece of metal in it. Pt also states her leg has swollen up more. Pt notes she is dehydrated and would like to be hydrated as well. Test results without any significant abnormalities except for creatinine of 1.1, glucose of 119, CRP of 20.8. In the ED course, the pt was given IV fluids and Rocephin since the pt seemed to have cellulitis. She was also given a tetanus vaccine because of the abrasion. Pts symptoms improved. Pt will be discharged home with follow up from her PCP and a prescription for Bactrim for cellulitis. She was instructed to return to the ED for any fever, chills, nausea, vomiting, and worsening of cellulitis. Pt is hemodynamically stable, alert and oriented x3. - Diagnoses Provider Diagnoses: Cellulitis Discharge - Discharge Plan Condition: Stable Disposition: HOME Prescriptions: Sulfamethox/Trimethoprim DS* [Bactrim DS 800/160 TAB*] 1 tab PO BID #20 tab Patient Education Materials: Cellulitis (ED) Referrals: Edy Calvin MD [Primary Care Provider] - Additional Instructions: Please follow up with your primary care provider. The documentation as recorded by the Elie victor Angela accurately reflects the service I personally performed and the decisions made by me, Martinez Hernandez MD.
== END | disposition home or self-care (01) ==
LOC: ED 13:53
DX: L03.116 Cellulitis of left lower limb (principal); J45.909 Unspecified asthma, uncomplicated; I10 Essential (primary) hypertension; Z87.891 Personal history of nicotine dependence
CPT/HCPCS: 36415; 80053; 85025; 86140; 90471; 90715; 96360; 96374; 99282; J0696

== ENCOUNTER 2018-07-22 20:48 | Emergency (ER) | payer OTHER ==
[2018-07-22] MEDS ORDERED: Ondansetron INJ* 2 MG/ML VIAL IV ONE (20:57)
[2018-07-22] MEDS ORDERED: Morphine VIAL* 10 MG/ML 1 ML VIAL IV ONE (20:57)
[2018-07-22] MEDS ORDERED: Ketorolac INJ* 15 MG/ML 1 ML VIAL IM ONE (20:57)
--- OUTSIDE RECORDS SUMMARY | 2018-07-22 21:09 | XMS REPORT ---
:1965 External Reference #:[id number] Author Organization [employer] Address [address] [place] [address] [place] [address] Phone [phone] Care Team Providers Name Role Phone Edy Calvin MD Primary Care Physician Unavailable Payers Type Date Identification Numbers Payment Provider Subscriber Commercial Effective: Policy Number: [id number] William Muñoz 2016 Group Number: [id number] [address] PayID: [id number] [place] [address] Medigap Part B Effective: 2016 Policy Number: [id number] Medicaid Taina Muñoz Expires: 2016 Group Name: 1 1 [address] PayID: [id number] [place] [address] Commercial Expires: 2016 Policy Number: [id number] William Muñoz PayID: [id number] [address] [place] [address] Problems Date Description Provider Status Onset: 05/29/2017 Glomerular disease Edy Calvin M.D.,IRVING Active Note: hyperfiltration Onset: 02/18/2016 Essential hypertension Edy Calvin M.D.,IRVING Active Onset: 02/18/2016 Asthma Edy Calvin M.D.,IRVING Active Note: since childhood Onset: 03/02/2016 Cervical disc disorder with Edy Calvin Active radiculopathy IRVING Medina Onset: 03/23/2016 Impaired fasting glycaemia Brando Carlson M.D., FACP Onset: 12/07/2016 Ex-smoker Edy Calvin Active Carol,FACP Onset: 01/10/2017 Obesity Dory Parson MD Active Onset: 02/24/2017 Obstructive sleep apnea Dory Parson MD Active syndrome Onset: 03/15/2017 Menopause present Edy Calvin Active CarolFACP Onset: 07/01/2017 Exacerbation of intermittent Dory Parson MD Active asthma Onset: 02/18/2016 Tobacco dependence syndrome Edy Calvin, Inactive Carol,FACP Inactive: 12/07/2016 Onset: 01/10/2017 Difficulty breathing Dory Parson MD Inactive Inactive: 02/08/2017 Family History Date Family Member(s) Problem(s) Comments General Unknown adopted Siblings None unknown Social History Type Date Description Comments Marital Status Single Lives With Mother Occupation Currently Working at [employer], has nursing degree Cigarette Use Former Cigarette Smoker Quit. Smoked 10+ cig per day ETOH Use 03/23/2016 Occasionally consumes alcohol Recreational Drug Use Denies Drug Use Smoking Patient is a former smoker Quit August 2016 Daily Caffeine 1 cup coffee twice a week Daily Caffeine Consumes on average 16oz per day General Hx Text 2 children Allergies, Adverse Reactions, Alerts Date Description Reaction Status Severity Comments 02/18/2016 NKDA active Medications Medication Date Status Form Strength Qnty SIG Indications Ordering Provider Amlodipine 06/27/ Active Tablets 5mg 30tab 1 by Toya Rutherford 2017 s mouth Varn, every day N.P. Flovent HFA 06/27/ Active Aerosol 110mcg/Ac 12gm 2 puffs J45.30 Toya 2017 t twice Varn, daily N.P. Enalapril Maleate 06/14/ Active Tablets 10mg 60tab 1 by Toya 2016 s mouth Varn, twice a N.P. day Loratadine 02/08/ Active Capsules 10mg 1 po qhs Edy 2016 prn Kenya Calvin M.D.,FACP Fluticasone 02/08/ Active Suspension 50mcg/Act 16uni 1 spray Edy Sotelo 2016 ts each Kenya Calvin nosghulam Medina,FACP in in the morning prn Cyclobenzaprine 04/20/ Active Tablets 10mg 30tab take 1 S33.6xxA Gil Sellers HCL 2016 s tablet Kenya Calvin, three M.D.,FACP times a day as needed Ventolin HFA 02/17/ Active Aerosol 108(90Bas 1mont 2 puffs J45.40 Gil Sellers 2015 e) h by mouth Kenya Calvin, mcg/Act four M.D.,FACP times a day as needed Aspirin Ec / Active Tablets DR 325mg 1 by Unknown 0000 mouth once daily Joint Health / Active Capsules 1 by Unknown 0000 mouth every day Vitamin D3 High / Active Capsules 1000Unit 1 by Unknown Potency 0000 mouth every day Hair Skin And / Active Tablets 2 po qd Unknown Nails Formula 0000 Multivitamin / Active Tablets 1 by Unknown Adult 0000 mouth every day Prednisone 07/01/ Hx TBPK 10mg (21) 21uni 4 tabs J45.21 Dory 2017 - ts day#1, 3 Eb, 06/27/ tabs 2018 day#2, 2 tabs day#3, 1 tab for 7 days, 1/2 tab for 10 days Azithromycin 07/01/ Hx Tablets 250mg 6tabs 2 tabs J45.21 Dory 2016 - day#1, 1 Eb, 06/27/ tablet 2018 daily for 4 days Amlodipine 03/15/ Hx Tablets 2.5mg 30tab 1 by Edy Besylate 2016 - mouth Kenya Calvin, 06/27/ every day M.D.,FACP 2017 Amoxicillin/Clavu 02/08/ Hx Tablets 875-125mg 14tab by mouth Edy lanate Potassium 2016 - s twice a Kenya Calvin, 02/15/ day M.D.,FACP 2016 Azithromycin 02/08/ Hx Tablets 250mg 6tabs 2 X1 Edy 2017 - today, Kenya Calvin, 02/13/ then 1 M.D.,FACP 2016 every day Enalapril Maleate 12/07/ Hx Tablets 10mg 60tab 1 by Edy 2017 - s mouth Kenya Calvin, 03/15/ twice a M.D.,FACP 2016 day Levaquin 06/13/ Hx Tablets 500mg 5tabs 1 by Other 2016 - mouth Ordering 06/18/ every day Provider 2016 Medrol 04/20/ Hx Tablets 4mg 1pak medrol S33.6xxA Edy 2016 - dosepack Kenya Calvin, 04/26/ as [facility] 2016 directed Chantix 03/23/ Hx Tablets 1mg 60tab take one Z72.0 Edy 2015 - s tablet by Kenya Calvin, 04/20/ mouth M.[place],FACP 2016 twice a day Chantix 02/17/ Hx Tablets 1mg 60tab take one Z72.0 Edy 2015 - s tablet by Kenya Calvin, 02/17/ mouth M.[facility]onzo[facility] 2016 twice a day after starter Chantix Starting 02/17/ Hx Tablets 0.5mg X 30tab as Z72.0 Edy Month Efren 2015 - & 1 mg s directed Kenya Calvin, 03/23/ X 42 M.[place] 2016 Bronkaid / Hx Tablets 25-400mg 2 tabs Unknown 0000 - q4h 2015 Enalapril Maleate / Hx Tablets 5mg 60tab take 1 Edy 0000 - s tablet by Kenya Calvin, 12/07/ oral M.DAlonzo,[facility] 2016 route 2 times every day Immunizations CPT Code Status Date Vaccine Lot # [id number] Given 07/16/2017 Tdap - Tetanus/Diptheria/Acellular Pertussis [id number] Given 06/13/2016 Pneumonia Vaccine Vital Signs Date Vital Result Comment 06/27/2018 Height 61.5 inches 5'1.50" Heart Rate 84 /min BP Systolic 142 mmHg BP Diastolic 76 mmHg Body Temperature 98.7 F O2 % BldC Oximetry 96 % 07/01/2017 Height 61.50 inches 5'1.50" Weight 230.00 lb per pt Heart Rate 76 /min reg BP Systolic Sitting 116 mmHg Rue, lg cuff BP Diastolic Sitting 64 mmHg Rue, lg cuff Respiratory Rate 16 /min O2 % BldC Oximetry 94 % on Ra BMI (Body Mass Index) 42.7 kg/m2 06/14/2017 Heart Rate 96 /min BP Systolic Sitting 158 mmHg BP Diastolic Sitting 70 mmHg Body Temperature 98.8 F O2 % BldC Oximetry 97 % 05/18/2017 Height 61.5 inches 5'1.50" Weight 237.00 lb Heart Rate 92 /min BP Systolic Sitting 138 mmHg BP Diastolic Sitting 82 mmHg Respiratory Rate 14 /min O2 % BldC Oximetry 98 % room air BMI (Body Mass Index) 44.1 kg/m2 03/15/2017 Weight 231.00 lb Heart Rate 97 /min BP Systolic 142 mmHg BP Diastolic 66 mmHg BP Systolic Recheck 122 mmHg BP Diastolic Recheck 75 mmHg O2 % BldC Oximetry 98 % 02/24/2017 Height 61.5 inches 5'1.50" Weight 240.00 lb Heart Rate 94 /min BP Systolic Sitting 130 mmHg BP Diastolic Sitting 60 mmHg Respiratory Rate 17 /min O2 % BldC Oximetry 98 % BMI (Body Mass Index) 44.6 kg/m2 02/08/2017 Weight 237.75 lb Heart Rate 97 /min BP Systolic Sitting 158 mmHg BP Diastolic Sitting 80 mmHg BP Systolic Recheck 160 mmHg BP Diastolic Recheck 85 mmHg Body Temperature 98.7 F O2 % BldC Oximetry 97 % 01/10/2017 Height 61.5 inches 5'1.50" Weight 240.00 lb Heart Rate 100 /min BP Systolic 110 mmHg BP Diastolic 60 mmHg Respiratory Rate 14 /min O2 % BldC Oximetry 96 % BMI (Body Mass Index) 44.6 kg/m2 Neck Circumference in inches 18.75 12/07/2016 Weight 246.00 lb Heart Rate 117 /min BP Systolic 178 mmHg BP Diastolic 54 mmHg BP Systolic Recheck 152 mmHg BP Diastolic Recheck 68 mmHg O2 % BldC Oximetry 97 % 06/29/2016 Weight 215.00 lb Heart Rate 85 /min BP Systolic Sitting 120 mmHg BP Diastolic Sitting 54 mmHg Body Temperature 97.9 F O2 % BldC Oximetry 97 % 04/20/2016 Weight 224.00 lb Heart Rate 96 /min BP Systolic Sitting 130 mmHg BP Diastolic Sitting 80 mmHg Respiratory Rate 15 /min Body Temperature 99.1 F O2 % BldC Oximetry 98 % 03/23/2016 Weight 225.00 lb Heart Rate 109 /min BP Systolic Sitting 128 mmHg BP Diastolic Sitting 82 mmHg Body Temperature 98.0 F O2 % BldC Oximetry 98 % 02/18/2016 Height 61.5 inches 5'1.50" Weight 224.00 lb Heart Rate 86 /min BP Systolic Sitting 152 mmHg BP Diastolic Sitting 80 mmHg Body Temperature 98.9 F O2 % BldC Oximetry 97 % BMI (Body Mass Index) 41.6 kg/m2 Results Test Date Test Result H/L Range Note Order 06/27/2018 EKG <pending> CBC Auto Diff 07/29/2017 White Blood Count 9.9 10^3/uL 3.5-10.8 Red Blood Count 4.21 10^6/uL 4.0-5.4 Hemoglobin 12.4 g/dL 12.0-16.0 Hematocrit 38 % 35-47 Mean Corpuscular Volume 90 fL 80-97 Mean Corpuscular Hemoglobin 29 pg 27-31 Mean Corpuscular HGB Conc 33 g/dL 31-36 Red Cell Distribution Width 15 % 10.5-15 Platelet Count 265 10^3/uL 150-450 Mean Platelet Volume 8 um3 7.4-10.4 Abs Neutrophils 6.6 10^3/uL 1.5-7.7 Abs Lymphocytes 2.7 10^3/uL 1.0-4.8 Abs Monocytes 0.6 10^3/uL 0-0.8 Abs Eosinophils 0 10^3/uL 0-0.6 Abs Basophils 0.1 10^3/uL 0-0.2 Abs Nucleated RBC 0.01 10^3/uL Granulocyte % 66.2 % 38-83 Lymphocyte % 27.2 % 25-47 Monocyte % 5.6 % 1-9 Eosinophil % 0.4 % 0-6 Basophil % 0.6 % 0-2 Nucleated Red Blood Cells % 0.1 Comp Metabolic Panel 07/29/2017 Sodium 139 mmol/L 133-145 Potassium 4.0 mmol/L 3.5-5.0 Chloride 105 mmol/L 101-111 Co2 Carbon Dioxide 28 mmol/L 22-32 Anion Gap 6 mmol/L 2-11 Glucose 119 mg/dL High 70-100 Blood Urea Nitrogen 23 mg/dL 6-24 Creatinine 1.13 mg/dL High 0.51-0.95 BUN/Creatinine Ratio 20.4 High 8-20 Calcium 9.7 mg/dL 8.6-10.3 Total Protein 6.9 g/dL 6.4-8.9 Albumin 4.3 g/dL 3.2-5.2 Globulin 2.6 g/dL 2-4 Albumin/Globulin Ratio 1.7 1-3 Total Bilirubin 0.20 mg/dL 0.2-1.0 Alkaline Phosphatase 80 U/L 34-104 Alt 39 U/L 7-52 Ast 25 U/L 13-39 Egfr Non- 50.4 >60 Egfr 64.8 >60 1 Laboratory test finding 07/29/2017 C Reactive Protein 20.81 mg/L High < 5.00 2 Creatinine Clearance 05/17/2017 Creatinine 0.82 mg/dL 0.51-0.95 Urine Collection Time 24 Urine Total Volume 2525 mL Urine Random Creatinine 90.99 mg/dL Creatinine Clearance 195 mL/min High 88-128 Microalbumin 24HR Urine 05/17/2017 Urine Collection Time 24 Urine Total Volume 2525 mL Ur Microalbumin (mg/L) < 15.0 mg/L Urine Microalbumin (mg/24Hr) TNP mg/24hr Less than 30 3 Urine Microalbumin (mcg/min) TNP mcg/min Less than 20 4 Basic Metabolic Panel 03/09/2017 Sodium 138 mmol/L 133-145 Potassium 4.8 mmol/L 3.5-5.0 Chloride 102 mmol/L 101-111 Co2 Carbon Dioxide 31 mmol/L 22-32 Anion Gap 5 mmol/L 2-11 Glucose 105 mg/dL High 70-100 Blood Urea Nitrogen 19 mg/dL 6-24 Creatinine 0.85 mg/dL 0.51-0.95 BUN/Creatinine Ratio 22.4 High 8-20 Calcium 9.5 mg/dL 8.6-10.3 Egfr Non- 70.0 >60 Egfr 90.0 >60 5 Laboratory test finding 03/09/2017 TSH (Thyroid Stim 0.99 mcIU/mL 0.34- 5.60 6 Horm) Hepatitis Acute Panel 03/09/2017 Hepatitis C Antibody Nonreactive Nonreactive Hepatitis A AB Igm Nonreactive Nonreactive Hepatitis B Core AB Igm Nonreactive Nonreactive Hepatitis B Surface Ag Nonreactive Nonreactive Comp Metabolic Panel 02/26/2017 Sodium 135 mmol/L 133-145 Potassium 4.2 mmol/L 3.5-5.0 Chloride 103 mmol/L 101-111 Co2 Carbon Dioxide 20 mmol/L Low 22-32 Anion Gap 12 mmol/L High 2-11 Glucose 108 mg/dL High 70-100 Blood Urea Nitrogen 49 mg/dL High 6-24 Creatinine 2.83 mg/dL High 0.51-0.95 BUN/Creatinine Ratio 17.3 8-20 Calcium 10.1 mg/dL 8.6-10.3 Total Protein 7.4 g/dL 6.4-8.9 Albumin 4.4 g/dL 3.2-5.2 Globulin 3.0 g/dL 2-4 Albumin/Globulin Ratio 1.5 1-3 Total Bilirubin 0.30 mg/dL 0.2-1.0 Alkaline Phosphatase 66 U/L 34-104 Alt 30 U/L 7-52 Ast 24 U/L 13-39 Egfr Non- 17.5 >60 Egfr 22.5 >60 7 Laboratory test finding 02/26/2017 Lipase 22 U/L 11.0-82.0 C Reactive Protein 28.92 mg/L High < 5.00 8 CBC Auto Diff 02/26/2017 White Blood Count 13.2 10^3/uL High 3.5-10.8 Red Blood Count 4.40 10^6/uL 4.0-5.4 Hemoglobin 12.8 g/dL 12.0-16.0 Hematocrit 40 % 35-47 Mean Corpuscular Volume 91 fL 80-97 Mean Corpuscular Hemoglobin 29 pg 27-31 Mean Corpuscular HGB Conc 32 g/dL 31-36 Red Cell Distribution Width 15 % 10.5-15 Platelet Count 280 10^3/uL 150-450 Mean Platelet Volume 9 um3 7.4-10.4 Abs Neutrophils 8.7 10^3/uL High 1.5-7.7 Abs Lymphocytes 3.5 10^3/uL 1.0-4.8 Abs Monocytes 0.9 10^3/uL High 0-0.8 Abs Eosinophils 0.1 10^3/uL 0-0.6 Abs Basophils 0.1 10^3/uL 0-0.2 Abs Nucleated RBC 0 10^3/uL Granulocyte % 65.5 % 38-83 Lymphocyte % 26.4 % 25-47 Monocyte % 6.7 % 1-9 Eosinophil % 0.8 % 0-6 Basophil % 0.6 % 0-2 Nucleated Red Blood Cells % 0 Laboratory test finding 02/26/2017 Lactic Acid 1.2 mmol/L 0.5-2.0 9 Urinalysis Profile 02/26/2017 Urine Color Yellow Urine Appearance Clear Urine Specific [place] 1.016 1.010-1.030 Urine pH 5.0 5-9 Urine Urobilinogen Negative Negative Urine Ketones Negative Negative Urine Protein Negative Negative Urine Leukocytes Negative Negative Urine Blood Negative Negative Urine Nitrite Negative Negative Urine Bilirubin Negative Negative Urine Glucose Negative Negative Basic Metabolic Panel 06/29/2016 Sodium 138 mmol/L 133-145 Potassium 4.6 mmol/L 3.5-5.0 Chloride 104 mmol/L 101-111 Co2 Carbon Dioxide 24 mmol/L 22-32 Anion Gap 10 mmol/L 2-11 Glucose 106 mg/dL High 70-100 Blood Urea Nitrogen 20 mg/dL 6-24 Creatinine 0.88 mg/dL 0.51-0.95 BUN/Creatinine Ratio 22.7 High 8-20 Calcium 9.5 mg/dL 8.6-10.3 Egfr Non- 67.5 >60 Egfr 86.8 >60 10 Urine Culture And 06/12/2016 Urine Culture SEE RESULT 11 Sensitivities BELOW Laboratory test 06/12/2016 Hemoglobin A1c 6.2 % High Less than 12 finding (Glyco HGB) 6.0 Blood Culture SEE RESULT BELOW 13 Urinalysis Profile 06/12/2016 Urine Color Yane Urine Appearance Cloudy Urine Specific Chester 1.023 1.010-1.030 Urine pH 5.0 5-9 Urine Urobilinogen Negative Negative Urine Ketones Trace Negative Urine Protein 2+(100 mg/dL) Negative Urine Leukocytes Trace Negative Urine Blood Negative Negative Urine Nitrite Negative Negative Urine Bilirubin 1+ Negative Urine Glucose Negative Negative Urine White Blood Cell 2+(11-20/hpf) Absent Urine Red Blood Cell 2+(6-10/hpf) Absent Urine Bacteria Absent Absent Urine Squamous Epithelial Cell Present Absent Urine Hyaline Casts Present Absent Urine Calcium Oxalate Cryst Present Absent Laboratory test finding 06/12/2016 Magnesium 2.5 mg/dL 1.9-2.7 Lipase 26 U/L 11.0-82.0 C Reactive Protein 12.98 mg/L High < 5.00 14 Lactic Acid 2.1 mmol/L High 0.5-2.0 15 Comp Metabolic Panel 06/12/2016 Sodium 136 mmol/L 133-145 Potassium 4.6 mmol/L 3.5-5.0 Chloride 100 mmol/L Low 101-111 Co2 Carbon Dioxide 25 mmol/L 22-32 Anion Gap 11 mmol/L 2-11 Glucose 125 mg/dL High 70-100 Blood Urea Nitrogen 41 mg/dL High 6-24 Creatinine 3.32 mg/dL High 0.51-0.95 BUN/Creatinine Ratio 12.3 8-20 Calcium 10.1 mg/dL 8.6-10.3 Total Protein 8.0 g/dL 6.4-8.9 Albumin 4.6 g/dL 3.2-5.2 Globulin 3.4 g/dL 2-4 Albumin/Globulin Ratio 1.4 1-3 Total Bilirubin 0.30 mg/dL 0.2-1.0 Alkaline Phosphatase 85 U/L 34-104 Alt 41 U/L 7-52 Ast 30 U/L 13-39 Egfr Non- 14.6 >60 Egfr 18.7 >60 16 CBC Auto Diff 06/12/2016 White Blood Count 12.7 10^3/uL High 3.5-10.8 Red Blood Count 4.68 10^6/uL 4.0-5.4 Hemoglobin 13.1 g/dL 12.0-16.0 Hematocrit 41 % 35-47 Mean Corpuscular Volume 88 fL 80-97 Mean Corpuscular Hemoglobin 28 pg 27-31 Mean Corpuscular HGB Conc 32 g/dL 31-36 Red Cell Distribution Width 16 % High 10.5-15 Platelet Count 366 10^3/uL 150-450 Mean Platelet Volume 9 um3 7.4-10.4 Abs Neutrophils 9.4 10^3/uL High 1.5-7.7 Abs Lymphocytes 2.3 10^3/uL 1.0-4.8 Abs Monocytes 0.9 10^3/uL High 0-0.8 Abs Eosinophils 0 10^3/uL 0-0.6 Abs Basophils 0.1 10^3/uL 0-0.2 Abs Nucleated RBC 0.01 10^3/uL Granulocyte % 74.3 % 38-83 Lymphocyte % 17.9 % Low 25-47 Monocyte % 6.7 % 1-9 Eosinophil % 0.2 % 0-6 Basophil % 0.9 % 0-2 Nucleated Red Blood Cells % 0 Laboratory test finding 03/02/2016 TSH (Thyroid Stim Horm) 1.31 ?IU/mL 0.34-5.60 17 Lipid Profile 03/02/2016 Triglycerides 202 mg/dL 18 (Trig/Chol/HDL) Cholesterol 199 mg/dL 19 HDL Cholesterol 51.1 mg/dL 20 LDL Cholesterol 108 mg/dL 21 Basic Metabolic Panel 03/02/2016 Sodium 137 mmol/L 133-145 Potassium 5.3 mmol/L High 3.5-5.0 Chloride 103 mmol/L 101-111 Co2 Carbon Dioxide 30 mmol/L 22-32 Anion Gap 4 mmol/L 2-11 Glucose 116 mg/dL High 70-100 Blood Urea Nitrogen 21 mg/dL 6-24 Creatinine 0.74 mg/dL 0.51-0.95 BUN/Creatinine Ratio 28.4 High 8-20 Calcium 9.0 mg/dL 8.6-10.3 Egfr Non- 82.4 >60 Egfr 106.0 >60 22 1 Because ethnic data is not always readily available, this report includes an eGFR for both -Americans and non- Americans. The National Kidney Disease Education Program (NKDEP) does not endorse the use of the MDRD equation for patients that are not between the ages of 18 and 70, are , have extremes of body size, muscle mass, or nutritional status, or are non- or non-. According to the National Kidney Foundation, irrespective of diagnosis, the stage of the disease is based on the level of kidney function: Stage Description GFR(mL/min/1.73 m(2)) 1 Kidney damage with normal or decreased GFR 90 2 Kidney damage with mild decrease in GFR 60-89 3 Moderate decrease in GFR 30-59 4 Severe decrease in GFR 15-29 5 Kidney failure <15 (or dialysis) 2 Acute inflammation: >10.00 3 Unable to calculate due to low microalbumin 4 Unable to calculate due to low microalbumin 5 Because ethnic data is not always readily available, this report includes an eGFR for both -Americans and non- Americans. The National Kidney Disease Education Program (NKDEP) does not endorse the use of the MDRD equation for patients that are not between the ages of 18 and 70, are , have extremes of body size, muscle mass, or nutritional status, or are non- or non-. According to the National Kidney Foundation, irrespective of diagnosis, the stage of the disease is based on the level of kidney function: Stage Description GFR(mL/min/1.73 m(2)) 1 Kidney damage with normal or decreased GFR 90 2 Kidney damage with mild decrease in GFR 60-89 3 Moderate decrease in GFR 30-59 4 Severe decrease in GFR 15-29 5 Kidney failure <15 (or dialysis) 6 FASTING 10 HOUR 7 Because ethnic data is not always readily available, this report includes an eGFR for both -Americans and non- Americans. The National Kidney Disease Education Program (NKDEP) does not endorse the use of the MDRD equation for patients that are not between the ages of 18 and 70, are , have extremes of body size, muscle mass, or nutritional status, or are non- or non-. According to the National Kidney Foundation, irrespective of diagnosis, the stage of the disease is based on the level of kidney function: Stage Description GFR(mL/min/1.73 m(2)) 1 Kidney damage with normal or decreased GFR 90 2 Kidney damage with mild decrease in GFR 60-89 3 Moderate decrease in GFR 30-59 4 Severe decrease in GFR 15-29 5 Kidney failure <15 (or dialysis) 8 Acute inflammation: >10.00 9 [facility] Severe Sepsis and Septic Shock Management Bundle Measure requires all lactic acids initially measuring >2.0 mmol/L be repeated. 10 Because ethnic data is not always readily available, this report includes an eGFR for both -Americans and non- Americans. The National Kidney Disease Education Program (NKDEP) does not endorse the use of the MDRD equation for patients that are not between the ages of 18 and 70, are , have extremes of body size, muscle mass, or nutritional status, or are non- or non-. According to the National Kidney Foundation, irrespective of diagnosis, the stage of the disease is based on the level of kidney function: Stage Description GFR(mL/min/1.73 m(2)) 1 Kidney damage with normal or decreased GFR 90 2 Kidney damage with mild decrease in GFR 60-89 3 Moderate decrease in GFR 30-59 4 Severe decrease in GFR 15-29 5 Kidney failure <15 (or dialysis) 11 SEE RESULT BELOW Name: TAINA MUÑOZ : [address]: Cristine Gutiérrez DO Acct: [id number] Unit: [id number] AGE: 50 Location: [facility] [id number] Re06/12/16 SEX: F Status: ADM IN SPEC: [id number] NELSON: 06/12/[address]: Tyrel Bishop MD REQ: [id number] RECD: 06/12/16 STATUS: COMP RADHA DR: Edy Calvin MD _ SOURCE: URINE SPDESC: ORDERED: Urine Culture Procedure Result Reported Site Urine Culture Final 06/13/16- 0806 ML No Growth (<1,000 CFU/mL) * ML - MAIN LAB ([facility]) . END OF REPORT * ML=Testing performed at Main Lab DEPARTMENT OF PATHOLOGY, [address] [place] [address] Stephen Barker M.D. Director [facility] # [id number] 12 Therapeutic target for the treatment of diabetes Mellitus patients is <7% HBA1C, and in selective patients <6.0%.Please refer to [place] [employer] Diabetic care guidelines for further information. 13 SEE RESULT BELOW Name: TAINA MUÑOZ : [address]: Cristine Gutiérrez DO Acct: [id number] Unit: [id number] AGE: 50 Location: [place] [address] Re06/12/16 Dis: 06/13/16 SEX: F Status: DIS IN SPEC: [id number] NELSON: 06/12/[address]: Tyrel Bishop MD REQ: [id number] RECD: 06/12/16 STATUS: GAUDENCIO GARCIA DR: Edy Calvin MD _ SOURCE: BLOOD,VENO SPDESC: ORDERED: Blood Cult Procedure Result Reported Site Aerobic Culture Bottle Final 06/17/16- 0355 ML No Growth Day 5 Anaerobic Culture Bottle Final 06/17/16- 0355 ML No Growth Day 5 * ML - MAIN LAB ([facility]) . END OF REPORT * ML=Testing performed at Main Lab DEPARTMENT OF PATHOLOGY, [address] [place] [address] Stephen Barker M.D. Director [facility] # [id number] 14 Acute inflammation: >10.00 15 Critical Result LACT:2.1 Called to [id number] at: 03:02:22 by:[id number] Read back by:[id number] [facility] Severe Sepsis and Septic Shock Management Bundle Measure requires all lactic acids initially measuring >2.0 mmol/L be repeated. 16 Because ethnic data is not always readily available, this report includes an eGFR for both -Americans and non- Americans. The National Kidney Disease Education Program (NKDEP) does not endorse the use of the MDRD equation for patients that are not between the ages of 18 and 70, are , have extremes of body size, muscle mass, or nutritional status, or are non- or non-. According to the National Kidney Foundation, irrespective of diagnosis, the stage of the disease is based on the level of kidney function: Stage Description GFR(mL/min/1.73 m(2)) 1 Kidney damage with normal or decreased GFR 90 2 Kidney damage with mild decrease in GFR 60-89 3 Moderate decrease in GFR 30-59 4 Severe decrease in GFR 15-29 5 Kidney failure <15 (or dialysis) 17 FASTING 10 HOUR 18 Desirable <150 Borderline high 150-199 High 200-499 Very High >500 19 Desirable <200 Borderline high 200-239 High >239 20 Low <40 Desirable: 40-60 High: >60 21 Desirable: <100 mg/dL Near Optimal: 100-129 mg/dL Borderline High: 130-159 mg/dL High: 160-189 mg/dL Very High: >189 mg/dL 22 Because ethnic data is not always readily available, this report includes an eGFR for both -Americans and non- Americans. The National Kidney Disease Education Program (NKDEP) does not endorse the use of the MDRD equation for patients that are not between the ages of 18 and 70, are , have extremes of body size, muscle mass, or nutritional status, or are non- or non-. According to the National Kidney Foundation, irrespective of diagnosis, the stage of the disease is based on the level of kidney function: Stage Description GFR(mL/min/1.73 m(2)) 1 Kidney damage with normal or decreased GFR 90 2 Kidney damage with mild decrease in GFR 60-89 3 Moderate decrease in GFR 30-59 4 Severe decrease in GFR 15-29 5 Kidney failure <15 (or dialysis) Procedures Date CPT Code Description Status 06/27/2018 94728 EKG Tracing & Interpretation Completed 02/17/2017 73815 Polysomnography Sleep Staging 4+ Parameters W/Cpap Completed 12/07/2016 88348 EKG Tracing & Interpretation Completed 05/31/2016 Colonoscopy Completed 02/27/2016 Mammogram Completed Encounters Type Date Location Provider CPT E/M Dx Office Visit 07/01/2017 [place] [address] J45.21 10:00a [facility] G47.33 E66.09 K21.9 Office Visit 06/14/2017 11:30a [facility] Internal Medicine Edy Calvin, [address] N18.1 - Mariela Medina,FACP I10 J45.21 M77.12 Office Visit 05/18/2017 9:45a [facility] [address] G47.33 [facility] E66.09 Office Visit 03/15/2017 9:00a [facility] Internal Medicine Edy Calvin, [address] A09 - Mariela Medina,FACP R73.01 I10 N18.1 Office Visit 02/27/2017 9:13a [facility], [place]ita Uribe, [address] E86.0 Hospitalists MStarla N17.9 Office Visit 02/26/2017 9:13a [facility] Tonja HERNANDEZ, 11527 E86.0 Assoc, Hospitalists M.DAlonzo N17.9 Office Visit 02/24/2017 9:30a Pul[place] [address] G47.33 Services Of [facility] E66.09 Office Visit 02/08/2017 9:00a [facility] Internal Medicine Edy Calvin, 56882 J18.9 - Mariela Medina,FACP I10 Office Visit 01/10/2017 2:45p [facility] [address] R06.83 [facility] R35.1 G47.10 G47.63 G47.8 E66.09 Z68.41 Office Visit 12/07/2016 11:50a [facility] Internal Medicine Edy Calvin, 81383 R00.2 - Mariela Medina,FACP L82.1 I10 E66.09 Office Visit 06/29/2016 11:10a [facility] Internal Medicine Edy Calvin, 06654 N12 - Mariela Medina,FACP I10 Office Visit 06/13/2016 11:22a [facility] Cristine Gutiérrez, 03549 A41.9 Hospitalists D.O. N12 N17.9 I10 Office Visit 06/12/2016 11:21a [facility] Assoc,pc Cristine Gutiérrez, 04755 A41.9 Hospitalists D.O. N12 N17.9 I10 Office Visit 04/20/2016 9:30a [facility] Internal Edy DAlonzo Calvin, 15427 S33.6xxA Millie Mariela Medina,FACP Office Visit 03/23/2016 2:40p [facility] Internal Edy Calvin, 52137 I10 Millie Sierra M.D.,FACP Z72.0 R73.01 Office Visit 02/18/2016 11:30a [facility] Internal Edy DAlonzo Calvin, 33379 M50.13 [facility]FACP Z72.0 I10 Z12.31 Z12.11 J45.40 Plan of Care 06/27/2018 - Toya Rubio N.P.I10 Essential (primary) hypertensionComments: For your blood pressure I want you to increase your Amlodipine to 5 mg daily. Continue to take the Enalapril twice daily.I would like you to monitor your blood pressure at home. If your readings at home are consistently higher than 140/90, please call the office.Follow up:HTN and asthma f/u 2 vkjntF92.30 Mild persistent asthma, uncomplicatedNew Medication:Flovent HFA 110 mcg/ActComments: You are having an asthma flare. I have prescribed a steroid inhaler for you, Flovent. Take 2 inhalations, twice daily fo r the next month.R73.01 Impaired fasting xppvysaA10.02 Shortness of breathComments:To further evaluate your shortness of breath I have ordered a chest Xray. I will contact you with your results.M54.5 Low back painNew Therapy:Physical TherapyComments:For your back pain:I am referring you for physical therapy. I suggest you try taking Acetaminophen as needed for your back pain.Applying ice to your lower back is also going to be helpful.M25.50 Pain in unspecified joint
--- OUTSIDE RECORDS SUMMARY | 2018-07-22 21:09 | XMS REPORT ---
:1965 External Reference #:[id number] Author Organization [facility] [employer] Address [address] [place] [address] [place] [address] Phone [phone] Care Team Providers Name Role Phone Edy Calvin MD Primary Care Physician Unavailable Payers Type Date Identification Numbers Payment Provider Subscriber Commercial Effective: Policy Number: [id number] William Muñoz 2016 Group Number: [id number] [address] PayID: [id number] [place] [address] Medigap Part B Effective: 2016 Policy Number: [id number] Medicaid Taina Muñoz Expires: 2016 Group Name: 1 1 [address] PayID: [id number] [place] [address] Commercial Expires: 2016 Policy Number: [id number] William Muñoz PayID: [id number] [address] [place] [address] Advance Directives Type Date Description Status Comment Other Directive 06/27/2018 [facility] Care Proxy Current and Verified Problems Date Description Provider Status Onset: 05/29/2017 Glomerular disease Edy Calvin M.D.,IRVING Active Note: hyperfiltration Onset: 02/18/2016 Essential hypertension Edy Calvin M.D.,IRVING Active Onset: 02/18/2016 Asthma Edy Calvin M.D.,IRVING Active Note: since childhood Onset: 03/02/2016 Cervical disc disorder with Edy Calvin, Active radiculopathy IRVING Medina Onset: 03/23/2016 Impaired fasting glycaemia Brando Carlson M.D.FACP Onset: 12/07/2016 Ex-smoker Edy Calvin Active CarolFACP Onset: 01/10/2017 Obesity Dory Parson MD Active Onset: 02/24/2017 Obstructive sleep apnea Dory Parson MD Active syndrome Onset: 03/15/2017 Menopause present Edy Calvin Active CarolFACP Onset: 07/01/2017 Exacerbation of intermittent Dory Parson MD Active asthma Onset: 02/18/2016 Tobacco dependence syndrome Edy Calvin, Inactive CarolFACP Inactive: 12/07/2016 Onset: 01/10/2017 Difficulty breathing Dory Parson MD Inactive Inactive: 02/08/2017 Family History Date Family Member(s) Problem(s) Comments General Unknown adopted Siblings None unknown Social History Type Date Description Comments Marital Status Single Lives With Mother Occupation Currently Working at [employer], has nursing degree Cigarette Use Former Cigarette [...] Form Strength Qnty SIG Indications Ordering Provider Fluoxetine HCL 07/07/ Active Tablets 20mg 30tab 1 by F33.9 Toya 2017 s mouth Varn, every day N.P. Metformin HCL ER 07/07/ Active Tablets ER 500mg 30tab One po E11.9 Toya (Osm) 2017 24HR s with Varn, dinner N.P. Vitamin D3 Ultra 07/07/ Active Tablets [id number] 4tabs one by E11. Toya Potency 2018 mouth Varn, once N.P. weekly Advair Diskus 07/07/ Active Aerosol 250-50mcg 60uni inhale 1 E11.9 Toya 2017 /Dose ts puff by Varn, mouth two N.P. times a day Metformin HCL ER 07/03/ Active Tablets ER 500mg 90tab 1 by Toya 2017 24HR s mouth Varn, with N.P. dinner Amlodipine 06/27/ Active Tablets 5mg 30tab 1 by Toya Besylate 2017 s mouth Varn, every day N.P. Enalapril Maleate 06/14/ Active Tablets 10mg 60tab 1 by Toya 2016 s mouth Varn, twice a N.P. day Loratadine 02/08/ Active Capsules 10mg 1 po qhs Edy 2016 prn Kenya Calvin M.D.,FACP Fluticasone 02/08/ Active Suspension 50mcg/Act 16uni 1 spray Edy Propionate 2016 ts each Kenya Calvin, nostril M.D.,FACP in in the morning prn Cyclobenzaprine 04/20/ [...] by Unknown Adult 0000 mouth every day Flovent HFA 06/27/ Hx Aerosol 110mcg/Ac 12gm 2 puffs J45.30 Toya 2017 - t twice Varn, 07/07/ daily N.P. 2018 Prednisone 07/01/ Hx TBPK 10mg (21) 21uni 4 tabs J45.21 Dory 2016 - ts day#1, 3 Eb, 06/27/ tabs 2017 day#2, 2 tabs day#3, 1 tab for 7 days, 1/2 tab for 10 days Azithromycin 07/01/ Hx Tablets 250mg 6tabs 2 tabs J45.21 Dory 2016 - day#1, 1 Eb, 06/27/ tablet 2018 daily for 4 days Amlodipine 03/15/ Hx Tablets 2.5mg 30tab 1 by Edy Besylate 2016 - s mouth Kenya Calvin, 06/27/ every day M.D.,FACP 2018 Amoxicillin/Clavu 02/08/ Hx Tablets 875-125mg 14tab by mouth Edy lanate Potassium 2017 - s twice a Kenya Calvin, 02/15/ day M.D.,FACP 2016 Azithromycin 02/08/ Hx Tablets 250mg 6tabs 2 X1 Edy 2017 - today, Kenya Calvin, 02/13/ then 1 M.D.,FACP 2017 every day Enalapril Maleate 12/07/ Hx Tablets 10mg 60tab 1 by Edy 2016 - mouth Kenya Calvin, 03/15/ twice a M.D.,[facility] 2016 day Levaquin 06/13/ Hx Tablets 500mg 5tabs 1 by Other 2016 - mouth Ordering 06/18/ every day Provider 2016 Medrol 04/20/ Hx Tablets 4mg 1pak medrol S33.6xxA Edy 2015 - dosepack Kenya Calvin, 04/26/ as M.DAlonzo,[facility] 2016 directed Chantix 03/23/ Hx Tablets 1mg 60tab take one Z72.0 Edy 2015 - tablet by Kenya Calvin, 04/20/ mouth M.DAlonzo,[facility] 2016 twice a day Chantix 02/17/ Hx Tablets 1mg 60tab take one Z72.0 Edy 2015 - tablet by Kenya Calvin, 02/17/ mouth M.DAlonzo,[facility] 2016 twice a day after starter Chantix Starting 02/17/ Hx Tablets 0.5mg X 30tab as Z72.0 Edy Month Efren 2015 - & 1 mg s directed Kenya Calvin, 03/23/ X 42 M.DAlonzo,[facility] 2016 Bronkaid / Hx Tablets 25-400mg 2 tabs Unknown 0000 - q4h 2015 Enalapril Maleate / Hx Tablets 5mg 60tab take 1 Edy 0000 - s tablet by Kenya Calvin, 12/07/ oral M.DAlonzo,[facility] 2017 route 2 times every day Immunizations CPT Code Status Date Vaccine Lot # [id number] Given 07/16/2017 Tdap - Tetanus/Diptheria/Acellular Pertussis 12960 Given 06/13/2016 Pneumonia Vaccine Vital Signs Date Vital Result Comment 07/07/2018 Height 61.5 inches 5'1.50" Heart Rate 87 /min BP Systolic 150 mmHg BP Diastolic 60 mmHg Body Temperature 98.4 F O2 % BldC Oximetry 96 % 06/27/2018 Height 61.5 inches 5'1.50" Heart Rate [...] Test Date Test Result H/L Range Note Laboratory test finding 07/05/2018 C Reactive Protein 14.73 mg/L High < 8.01 Anti Nuclear Antibody 0.1 U 1 Laboratory test finding 06/29/2018 C Reactive Protein 18.99 mg/L High < 8.01 Erythrocyte Sed Rate 19 mm/Hr 0-30 Lyme Disease Serology Negative Negative 2 Rheumatoid Factor < 10 IU/mL <15 Cyclic Citrullinated Pep Igg <15.6 U 3 Vitamin D Total 25(Oh) 23.3 ng/mL 20-50 CBC Auto Diff 06/29/2018 White Blood Count 8.4 10^3/uL 3.5-10.8 Red Blood Count 4.42 10^6/uL 4.00-5.40 Hemoglobin 13.1 g/dL 12.0-16.0 Hematocrit 40 % 35-47 Mean Corpuscular Volume 90 fL 80-97 Mean Corpuscular Hemoglobin 30 pg 27-31 Mean Corpuscular HGB Conc 33 g/dL 31-36 Red Cell Distribution Width 15 % 10.5-15 Platelet Count 256 10^3/uL 150-450 Mean Platelet Volume 8.9 um3 7.4-10.4 Abs Neutrophils 4.8 10^3/uL 1.5-7.7 Abs Lymphocytes 2.6 10^3/uL 1.0-4.8 Abs Monocytes 0.7 10^3/uL 0-0.8 Abs Eosinophils 0.1 10^3/uL 0-0.6 Abs Basophils 0.1 10^3/uL 0-0.2 Abs Nucleated RBC 0 10^3/uL Granulocyte % 57.7 % 38-83 Lymphocyte % 31.1 % 25-47 Monocyte % 8.5 % High 0-7 Eosinophil % 1.3 % 0-6 Basophil % 1.4 % 0-2 Nucleated Red Blood Cells % 0 Laboratory test finding 06/29/2018 Vitamin B12 457 pg/mL 180-914 4 Ferritin 63.8 ng/mL 11-307 Comp Metabolic Panel 06/29/2018 Sodium 136 mmol/L 135-145 Potassium 3.9 mmol/L 3.5-5.0 Chloride 101 mmol/L 101-111 Co2 Carbon Dioxide 24 mmol/L 22-32 Anion Gap 11 mmol/L 2-11 Glucose 179 mg/dL High 70-100 Blood Urea Nitrogen 24 mg/dL 6-24 Creatinine 1.05 mg/dL High 0.51-0.95 BUN/Creatinine Ratio 22.9 High 8-20 Calcium 9.5 mg/dL 8.6-10.3 Total Protein 6.7 g/dL 6.4-8.9 Albumin 4.2 g/dL 3.2-5.2 Globulin 2.5 g/dL 2-4 Albumin/Globulin Ratio 1.7 1-3 Total Bilirubin 0.40 mg/dL 0.2-1.0 Alkaline Phosphatase 94 U/L 34-104 Alt 56 U/L High 7-52 Ast 42 U/L High 13-39 Egfr Non- 54.6 >60 Egfr 66.1 >60 5 Laboratory test finding 06/29/2018 Hemoglobin A1c (Glyco 8.9 % High 4.0- 5.6 6 HGB) CBC Auto Diff 07/29/2017 White Blood Count [...] Egfr Non- 50.4 >60 Egfr 64.8 >60 7 Laboratory test finding 07/29/2017 C Reactive Protein 20.81 mg/L High < 5.00 8 Creatinine Clearance 05/17/2017 Creatinine 0.82 mg/dL 0.51-0.95 Urine Collection Time 24 Urine Total Volume 2525 mL Urine Random Creatinine 90.99 mg/dL Creatinine Clearance 195 mL/min High 88-128 Microalbumin 24HR Urine 05/17/2017 Urine Collection Time 24 Urine Total Volume 2525 mL Ur Microalbumin (mg/L) < 15.0 mg/L Urine Microalbumin (mg/24Hr) TNP mg/24hr Less than 30 9 Urine Microalbumin (mcg/min) TNP mcg/min Less than 20 10 Basic Metabolic Panel 03/09/2017 Sodium 138 mmol/L 133-145 Potassium 4.8 mmol/L 3.5-5.0 Chloride 102 mmol/L 101-111 Co2 Carbon Dioxide 31 mmol/L 22-32 Anion Gap 5 mmol/L 2-11 Glucose 105 mg/dL High 70-100 Blood Urea Nitrogen 19 mg/dL 6-24 Creatinine 0.85 mg/dL 0.51-0.95 BUN/Creatinine Ratio 22.4 High 8-20 Calcium 9.5 mg/dL 8.6-10.3 Egfr Non- 70.0 >60 Egfr 90.0 >60 11 Laboratory test finding 03/09/2017 TSH (Thyroid Stim 0.99 mcIU/mL 0.34- 5.60 12 Horm) Hepatitis Acute Panel 03/09/2017 Hepatitis C [...] Egfr Non- 17.5 >60 Egfr 22.5 >60 13 Laboratory test finding 02/26/2017 Lipase 22 U/L 11.0-82.0 C Reactive Protein 28.92 mg/L High < 5.00 14 CBC Auto Diff 02/26/2017 White Blood Count [...] finding 02/26/2017 Lactic Acid 1.2 mmol/L 0.5-2.0 15 Urinalysis Profile 02/26/2017 Urine Color Yellow Urine Appearance Clear Urine Specific [place] 1.016 1.010-1.030 Urine pH 5.0 5-9 Urine [...] Egfr Non- 67.5 >60 Egfr 86.8 >60 16 Comp Metabolic Panel 06/12/2016 Sodium 136 mmol/L [...] Egfr Non- 14.6 >60 Egfr 18.7 >60 17 CBC Auto Diff 06/12/2016 White Blood Count [...] 0-2 Nucleated Red Blood Cells % 0 Urine Culture And 06/12/2016 Urine Culture SEE RESULT 18 Sensitivities BELOW Laboratory test 06/12/2016 Hemoglobin A1c 6.2 % High Less than 19 finding (Glyco HGB) 6.0 Blood Culture SEE RESULT BELOW 20 Urinalysis Profile 06/12/2016 Urine Color Yane Urine Appearance Cloudy Urine Specific [place] 1.023 1.010-1.030 Urine pH 5.0 5-9 Urine [...] Reactive Protein 12.98 mg/L High < 5.00 21 Lactic Acid 2.1 mmol/L High 0.5-2.0 22 Laboratory test finding 03/02/2016 TSH (Thyroid Stim Horm) 1.31 ?IU/mL 0.34-5.60 23 Lipid Profile 03/02/2016 Triglycerides 202 mg/dL 24 (Trig/Chol/HDL) Cholesterol 199 mg/dL 25 HDL Cholesterol 51.1 mg/dL 26 LDL Cholesterol 108 mg/dL 27 Basic Metabolic Panel 03/02/2016 Sodium 137 mmol/L 133-145 Potassium 5.3 mmol/L High 3.5-5.0 Chloride 103 mmol/L 101-111 Co2 Carbon Dioxide 30 mmol/L 22-32 Anion Gap 4 mmol/L 2-11 Glucose 116 mg/dL High 70-100 Blood Urea Nitrogen 21 mg/dL 6-24 Creatinine 0.74 mg/dL 0.51-0.95 BUN/Creatinine Ratio 28.4 High 8-20 Calcium 9.0 mg/dL 8.6-10.3 Egfr Non- 82.4 >60 Egfr 106.0 >60 28 1 REFERENCE VALUE <=1.0 (Negative) Test Performed by: [facility] - [facility] [address] [place] [address] 2 No evidence of antibodies to B. burgdorferi detected. False negative results may occur in recently infected patients (<=2 weeks) due to low or undetectable antibody levels to B. burgdorferi. If recent exposure is suspected, a second sample should be collected and tested in 2-4 weeks. Test Performed by: [facility] - [facility] [address] [place] [address] 3 REFERENCE VALUE <20.0 (Negative) Test Performed by: [facility] - [facility] [address] [place] [address] 4 Normal Range 180 to 914 Indeterminate Range 145 to 180 Deficient Range <145 5 Because ethnic data is not always [...] 5 Kidney failure <15 (or dialysis) 6 Therapeutic target for the treatment of diabetes mellitus patients is <7% HBA1C, and in selective patients <6.0%. Please refer to [place] [employer] diabetic care guidelines for further information. 7 Because ethnic data is not always [...] (or dialysis) 8 Acute inflammation: >10.00 9 Unable to calculate due to low microalbumin 10 Unable to calculate due to low microalbumin 11 Because ethnic data is not always readily [...] 15-29 5 Kidney failure <15 (or dialysis) 12 FASTING 10 HOUR 13 Because ethnic data is not always readily [...] 15-29 5 Kidney failure <15 (or dialysis) 14 Acute inflammation: >10.00 15 [facility] Severe Sepsis and Septic Shock Management Bundle [...] 5 Kidney failure <15 (or dialysis) 17 Because ethnic data is not always readily [...] 15-29 5 Kidney failure <15 (or dialysis) 18 SEE RESULT BELOW Name: TAINA MUÑOZ : [address]: Cristine Gutiérrez DO Acct: [id number] Unit: [id number] AGE: 50 Location: [facility] 410-02 Re06/12/16 SEX: F Status: ADM IN SPEC: [id number] NELSON: 06/12/[address]: Tyrel Bishop MD REQ: [id number] RECD: 06/12/16 STATUS: COMP RADHA DR: Edy Calvin MD _ SOURCE: URINE SPDESC: ORDERED: Urine Culture Procedure Result Reported Site Urine Culture Final 06/13/16- 08 ML No Growth (<1,000 CFU/mL) * ML - [facility] ([facility]) . END OF REPORT * ML=Testing performed at Main Lab DEPARTMENT OF PATHOLOGY, [address] [place] [address] Stephen Barker M.D. Director [facility] # [id number] 19 Therapeutic target for the treatment of diabetes Mellitus patients is <7% HBA1C, and in selective patients <6.0%.Please refer to [place] [employer] Diabetic care guidelines for further information. 20 SEE RESULT BELOW Name: TAINA MUÑOZ : [address]: Cristine Gutiérrez DO Acct: [id number] Unit: [id number] AGE: 50 Location: [place] [address] Re06/12/16 Dis: 06/13/16 SEX: F Status: DIS IN SPEC: [id number] NELSON: 06/12/16-[address] [facility] [address]: Tyrel Bishop MD REQ: [id number] RECD: 06/12/16 STATUS: GAUDENCIO GARCIA DR: Edy Calvin MD _ SOURCE: [facility] ORDERED: Blood Cult Procedure Result Reported Site Aerobic Culture Bottle Final 06/17/16- 5 ML No Growth Day 5 Anaerobic Culture Bottle Final 06/17/16- 5 ML No Growth Day 5 * ML - MAIN LAB ([facility]) . END OF REPORT * ML=Testing performed at Main Lab DEPARTMENT OF PATHOLOGY, [address] [place] [address] Stephen Barker M.D. Director [facility] # [id number] 21 Acute inflammation: >10.00 22 Critical Result LACT:2.1 Called to KARLOS at: 03:02:22 by:[id number] Read back by:KARLOS [facility] Severe Sepsis and Septic Shock Management Bundle Measure requires all lactic acids initially measuring >2.0 mmol/L be repeated. 23 FASTING 10 HOUR 24 Desirable <150 Borderline high 150-199 High 200-499 Very High >500 25 Desirable <200 Borderline high 200-239 High >239 26 Low <40 Desirable: 40-60 High: >60 27 Desirable: <100 mg/dL Near Optimal: 100-129 mg/dL Borderline High: 130-159 mg/dL High: 160-189 mg/dL Very High: >189 mg/dL 28 Because ethnic data is not always readily [...] Procedures Date CPT Code Description Status 06/27/2018 40446 EKG Tracing & Interpretation Completed 02/17/2017 88513 Polysomnography Sleep Staging 4+ Parameters W/Cpap Completed 12/07/2016 76953 EKG Tracing & Interpretation Completed 05/31/2016 Colonoscopy Completed 02/27/2016 Mammogram Completed Encounters Type Date Location Provider CPT E/M Dx Office Visit 07/01/2017 Pulmon[place] [address] J45.21 10:00a [facility] G47.33 E66.09 K21.9 Office Visit 06/14/2017 11:30a [facility] Internal Medicine Edy Calvin, 56243 N18.1 - Mariela Medina,FACP I10 J45.21 M77.12 Office Visit 05/18/2017 9:45a [facility] [address] G47.33 [facility] E66.09 Office Visit 03/15/2017 9:00a [facility] Internal Medicine Edy Calvin, 965[address] A09 - Mariela Medina,FACP R73.01 I10 N18.1 Office Visit 02/27/2017 9:13a [facility] Assoc,pc Clarita Uribe, 73148 E86.0 Hospitalists Carol N17.9 Office Visit 02/26/2017 9:13a [facility] [place], [address] E86.0 Assoc, Hospitalists MStarla N17.9 Office Visit 02/24/2017 9:30a [facility] [address] G47.33 [facility] E66.09 Office Visit 02/08/2017 9:00a [facility] Internal Medicine Edy Calvin, 42409 J18.9 - Mariela Medina,FACP I10 Office Visit 01/10/2017 2:45p Pul[facility] [place] [address] R06.83 [facility] R35.1 G47.10 G47.63 G47.8 E66.09 Z68.41 Office Visit 12/07/2016 11:50a [facility] Internal Medicine Edy Calvin, 60563 R00.2 - Mariela Medina,FACP L82.1 I10 E66.09 Office Visit 06/29/2016 11:10a [facility] Internal Medicine Edy Calvin, 86376 N12 Iban Sierra M.D.,FACP I10 Office Visit 06/13/2016 [facility] Cristine Guti[facility]rez, 28083 A41.9 Hospitalists D.O. N12 N17.9 I10 Office Visit 06/12/2016 11:21a [facility] Assoc, Cristine Gutiérrez, 33896 A41.9 Hospitalists D.O. N12 N17.9 I10 Office Visit 04/20/2016 9:30a [facility] Internal Edy Calvin, 14356 S33.6xxA Millie Sierra M.D.,FACP Office Visit 03/23/2016 2:40p [facility] Internal Edy Calvin, 30921 I10 Millie Sierra M.D.,FACP Z72.0 R73.01 Office Visit 02/18/2016 11:30a [employer] Internal dEy Calvin, 18976 M50.13 Medicine - [place] Edil Medina,FACP Z72.0 I10 Z12.31 Z12.11 J45.40 Plan of Care 07/07/2018 - Toya Rubio N.P.E11.9 Type 2 diabetes mellitus without complicationsNew Medication:Metformin HCL ER (Osm) 500 mgVitamin D3 Ultra Potency 69723 UnitAdvair Diskus 250-50 mcg/DoseComments:For your diabetes: I have prescribed Metformin ER 500 mg. Take 1 tablet with your dinner.I want you to meet with a certified adaptive physical educator, aNi Ball. She will help you with your nutrition. Please have your specialist send me a report so I may incorporate this into your record.Referral:Nai Ball CNM, Pressed Or Blown Glass Worker/RNF33.9 Major depressive disorder, recurrent, unspecifiedNew Medication:Fluoxetine HCL 20 mgComments:For your depression:I have prescribed Fluoxetine 20 mg. For the first week take 1/2 tablet, then boost to a full.Follow up:DM and depression F/ U 1 month
--- NOTE | 2018-07-22 21:14 | ED ---
Abdominal Pain/Female - HPI Summary HPI Summary: This is scribe Carlos Enrique Hallelindsey documenting for attending Dr. Rafy Leary MD. This patient is a 52 year old F presenting to [facility] accompanied by a woman with a chief complaint of right flank pain since 2 hours ago. Pt felt fine before the symptoms. The patient rates the pain 9/10 in severity. Symptoms aggravated by movement. Patient reports nausea and severe pain. Patient denies vomiting, diarrhea, or vaginal symptoms. Pt was recently diagnosed with NIDDM. PMHX NIDDM , HTN, kidney stones I, Dr. Leary, personally performed the services described in this documentation as scribed in my presence and it is both accurate and complete. - History of Current Complaint Chief Complaint: EDFlankPain Stated Complaint: RIGHT FLANK PAIN Time Seen by Provider: 07/22/18 20:57 Hx Obtained From: Patient Onset/Duration: Sudden Onset, Lasting Hours - 2 Timing: Constant Severity Initially: Severe Severity Currently: Severe Pain Intensity: 9 Pain Scale Used: 0-10 Numeric Location: Flank - right Character: Sharp Aggravating Factor(s): Movement Alleviating Factor(s): Nothing Associated Signs and Symptoms: Positive: Nausea. Negative: Urinary Symptoms, Vaginal Discharge, Vomiting, Diarrhea Allergies/Adverse Reactions: Allergies Allergy/AdvReac Type Severity Reaction Status Date / Time No Known Allergies Allergy Verified 07/16/17 13:03 PMH/Surg Hx/FS Hx/Imm Hx Endocrine/Hematology History: Reports: Hx Diabetes - NIDDM Denies: Hx Thyroid Disease Cardiovascular History: Reports: Hx Hypertension Respiratory History: Reports: Hx Asthma, Other Respiratory Problems/Disorders - PNA Denies: Hx Chronic Obstructive Pulmonary Disease (COPD) GI History: Denies: Hx Ulcer History: Reports: Hx Kidney Stones Musculoskeletal History: Reports: Hx Arthritis Sensory History: Denies: Hx Contacts or Glasses, Hx Hearing Aid Opthamlomology History: Denies: Hx Contacts or Glasses - Cancer History Hx Chemotherapy: No Hx Radiation Therapy: No - Surgical History Surgery Procedure, Year, and Place: csection, - Immunization History Date of Tetanus Vaccine: unknown Date of Influenza Vaccine: no Infectious Disease History: No Infectious Disease History: Denies: Hx Clostridium Difficile, Hx Hepatitis, Hx Human Immunodeficiency Virus (HIV), Hx of Known/Suspected MRSA, Hx Shingles, Hx Tuberculosis, Hx Known/ Suspected VRSA, History Other Infectious Disease, Traveled Outside the [place] in Last 30 Days - Family History Known Family History: Positive: Unknown - pt is adopted - Social History Alcohol Use: Occasionally Alcohol Amount: 5-6 drinks twice a week Hx Substance Use: No Substance Use Type: Reports: None Hx Tobacco Use: Yes Smoking Status (MU): Former Smoker Type: Cigarettes Amount Used/How Often: 1/2 pack a day Length of Time of Smoking/Using Tobacco: 30+ yrs Have You Smoked in the Last Year: Yes Review of Systems Positive: Nausea. Negative: Vomiting, Diarrhea Positive: flank pain - right Positive: Decreased ROM - due to pain All Other Systems Reviewed And Are Negative: Yes Physical Exam - Summary Physical Exam Summary: Appearance: Patient appears colicky Skin: Warm, dry, no obvious rash Eyes: sclera anicteric, no conjunctival pallor ENT: mucous membranes moist Neck: deferred Respiratory: No signs of respiratory distress Cardiovascular: Appears well perfused, pulses are nml Abdomen: obese Musculoskeletal: Moving all 4 extremities without obvious discomfort Neurological: Awake and alert, mentation is normal, speech is fluent and appropriate Psychiatric: affect is normal, does not appear anxious or depressed Triage Information Reviewed: Yes Vital Signs On Initial Exam: Initial Vitals Temp Pulse Resp BP Pulse Ox 98.6 F 97 17 168/72 93 07/22/18 20:52 07/22/18 20:52 07/22/18 20:52 07/22/18 20:52 07/22/18 20:52 Vital Signs Reviewed: Yes Diagnostics - Vital Signs Vital Signs Temp Pulse Resp BP Pulse Ox 07/22/18 20:52 98.6 F 97 17 168/72 93 - Laboratory Result Diagrams: 07/22/18 21:14 07/22/18 21:14 Lab Statement: Any lab studies that have been ordered have been reviewed, and results considered in the medical decision making process. Re-Evaluation - Re-Evaluation First Eval Re-Evaluation Time: 21:58 Change: Improved Comment: Pain has improved and is down to 4/10. Abdominal Pain Fem Course/Dx - Diagnoses Provider Diagnoses: Kidney stone Discharge - Sign-Out/Discharge Documenting (check all that apply): Patient Departure - discharge - Discharge Plan Condition: Improved Disposition: HOME Prescriptions: Oxycodone HCl/Acetaminophen [Percocet 5-325 mg Tablet] 1 each PO Q4HR PRN #14 tablet MDD 6 PRN Reason: Pain Patient Education Materials: Kidney Stones (ED) Referrals: Edy Calvin MD [Primary Care Provider] - - Attestation Statements Document Initiated by Scribe: Yes Documenting Scribe: Carlos Enrique Khan Provider For Whom Scribe is Documenting (Include Credential): Rafy Leary MD Scribe Attestation: Carlos Enrique Fam, scribed for Rafy Leary MD on 07/22/18 at 2250.
[2018-07-22 21:30] LABS: ABS Basophils 0 10^3/ul (0-0.2); ABS Eosinophils 0.2 10^3/ul (0-0.6); ABS Lymphocytes 3.3 10^3/ul (1.0-4.8); ABS Monocytes 0.9 10^3/ul (0-0.8); ABS Neutrophils 4.4 10^3/ul (1.5-7.7); ABS Nucleated RBC 0 10^3/ul; Eosinophil % 2.5 % (0-6); Hematocrit 41 % (35-47); Hemoglobin 13.6 g/dl (12.0-16.0); Lymphocyte % 37.7 % (25-47); Mean Corpuscular HGB Conc 34 g/dl (31-36); Mean Corpuscular Hemoglobin 30 pg (27-31); Mean Corpuscular Volume 89 fL (80-97); Mean Platelet Volume 8.2 um3 (7.4-10.4); Nucleated Red Blood Cells % 0; Platelet Count 241 10^3/ul (150-450); Red Blood Count 4.56 10^6/ul (4.00-5.40); Red Cell Distribution Width 15 % (10.5-15); White Blood Count 8.8 10^3/ul (3.5-10.8)
[2018-07-22 21:30] LABS: Urine Appearance Clear; Urine Blood 2+ (Negative); Urine Color Yellow; Urine Ketones Negative (Negative); Urine Protein Negative (Negative); Urine Red Blood Cell 3+(>10/hpf) (Absent); Urine Specific Gravity 1.017 (1.010-1.030); Urine Urobilinogen Negative (Negative); Urine White Blood Cell Trace(0-5/hpf) (Absent)
[2018-07-22 21:47] LABS: EGFR Non-African American 43.1 (>60)
[2018-07-22 23:00] VITALS: BP 167/81
== END 2018-07-22 22:59 | disposition home or self-care (01) ==
LOC: ED 20:48
DX: N20.0 Calculus of kidney (principal); E11.9 Type 2 diabetes mellitus without complications; Z87.891 Personal history of nicotine dependence; I10 Essential (primary) hypertension; J45.909 Unspecified asthma, uncomplicated
CPT/HCPCS: 36415; 80053; 81003; 81015; 83690; 85025; 87086; 96372; 96374; 96375; 99283; J1885; J2270; J2405